=== PATIENT | female | born 1995 | race Caucasian/White ===

== ENCOUNTER 2018-11-07 14:21 | Emergency (ER) | payer MEDICARE, MEDICAID ==
[~2018-11-07] VITALS: Ht 165.1 cm; Wt 63.9 kg
[~2018-11-07 14:21] MED LIST: ALBU18HF2 INH; CLIN150C8 PO; LORA-269 PO; NO HOME MEDS; OXCA300T4 PO; QUET25TA PO
[2018-11-07 16:02] VITALS: BP 121/68
[2018-11-07 16:20] LABS: URINE AMPHETAMINE SCREEN NEGATIVE (Neg); URINE BARBITUATE SCREEN NEGATIVE (Neg); URINE BENZODIAZEPINES SCREEN NEGATIVE (Neg); URINE CANNABINOID SCREEN NEGATIVE (Neg); URINE COCAINE SCREEN NEGATIVE (Neg); URINE METHADONE SCREEN NEGATIVE (Neg); URINE OPIATE SCREEN NEGATIVE (Neg); URINE PHENCYCLIDINE SCREEN NEGATIVE (Neg)
[2018-11-07 16:30] LABS: ALANINE AMINOTRANSFERASE 327 U/L (12-78); ALBUMIN 4.2 G/DL (3.4-5.0); ALBUMIN/GLOBULIN RATIO 1.1 (1.1-1.5); ALKALINE PHOSPHATASE 81 IU/L (46-116); ANION GAP 11 (8-16); ASPARTATE AMINO TRANSFERASE 109 U/L (10-37); BASOPHILS % (AUTO) 0.8 % (0-1); BILIRUBIN,TOTAL 0.3 MG/DL (0.1-1.0); BLOOD UREA NITROGEN 10 MG/DL (7-18); BUN/CREATININE RATIO 11.6 (6.6-38.0); CALCIUM 9.1 MG/DL (8.5-10.1); CHLORIDE 108 MMOL/L (99-107); CREATININE 0.86 MG/DL (0.40-0.90); EOSINOPHILS # (AUTO) 0.2 X10'3 (0-0.9); EOSINOPHILS % (AUTO) 3.7 % (0-6); GLUCOSE 98 MG/DL (70-104); HEMATOCRIT 42.3 % (35.0-45.0); HEMOGLOBIN 14.5 g/dl (12.0-16.0); LYMPHOCYTES # (AUTO) 2.3 X10'3 (1.1-4.8); LYMPHOCYTES % (AUTO) 43.9 % (21-51); MEAN CORPUSCULAR HEMOGLOBIN 32.3 PG (27.0-31.0); MEAN CORPUSCULAR HGB CONC 34.2 g/dL (33.0-36.5); MEAN CORPUSCULAR VOLUME 94.5 FL (78-98); MEAN PLATELET VOLUME 8.3 FL (7.4-10.4); MONOCYTES # (AUTO) 0.5 X10'3 (0-0.9); MONOCYTES % (AUTO) 9.6 % (2-12); NEUTROPHILS # (AUTO) 2.2 X10'3 (1.8-7.7); PLATELET COUNT 227 X10'3 (140-440); POTASSIUM 3.9 MMOL/L (3.5-5.1); RED BLOOD COUNT 4.48 X10'6 (4.20-5.60); RED CELL DISTRIBUTION WIDTH 12.5 % (11.5-14.5); SODIUM 143 MMOL/L (135-145); TOTAL CARBON DIOXIDE 24.3 MMOL/L (24-32); TOTAL PROTEIN 8.2 G/DL (6.4-8.2); WHITE BLOOD COUNT 5.2 X10'3 (4.5-11.0); eGFR 82 ML/MIN
[2018-11-07 16:36] LABS: BETA HCG,QUANTITATIVE < 1.0 mIU/ml; C-REACTIVE PROTEIN 0.06 MG/DL (0.0-0.5)
== END 2018-11-07 17:22 | disposition home or self-care (01) ==
LOC: ER 14:23
DX: H54.62 Unqualified visual loss, left eye, normal vision right eye (principal); F12.90 Cannabis use, unspecified, uncomplicated; F15.90 Other stimulant use, unspecified, uncomplicated; F11.90 Opioid use, unspecified, uncomplicated; F31.9 Bipolar disorder, unspecified; Z59.0 Homelessness; Z79.2 Long term (current) use of antibiotics; Z79.899 Other long term (current) drug therapy; Z88.8 Allergy status to other drugs, medicaments and biological substances
CPT/HCPCS: 36415; 80053; 80305; 84702; 85025; 85651; 86140; 93005; 99284

== ENCOUNTER 2021-12-25 18:37 | Emergency (ER) | payer MEDICARE, MEDICAID ==
[~2021-12-25] VITALS: Ht 165.1 cm; Wt 47.7 kg
[~2021-12-25 18:37] MED LIST changes: +BUPR1TAB44 SL; +BUSP5TAB26 PO; -CLIN150C8 PO; +FLUT16SP NS; +LISD10CA PO; -LORA-269 PO; +LORA10TA65 PO; -NO HOME MEDS; -OXCA300T4 PO; +QUET100T34 PO; -QUET25TA PO
[2021-12-25] MEDS ORDERED: LIDOcaine 1% W/epiNEPHrine 1:100,000 20ml vial SQ ONE (20:40)
--- NOTE | 2021-12-25 20:50 | NUR ---
KIT AT BEDSIDE REQUESTED
[2021-12-25] MEDS ORDERED: LIDOcaine 1% w/EPI 1:100,000 30ml vial (MDV) SQ ONE (20:55)
[2021-12-25] MEDS ORDERED: LIDOcaine 1% w/EPI 1:100,000 30ml vial (MDV) IJ ONE (20:55)
[2021-12-25] MEDS ORDERED: SULF1TAB49 PO (22:26)
[2021-12-25] MEDS ORDERED: IBUP-1986 PO (22:26)
== END 2021-12-25 22:26 | disposition home or self-care (01) ==
LOC: ER 18:41
DX: L02.512 Cutaneous abscess of left hand (principal); Z88.8 Allergy status to other drugs, medicaments and biological substances; F31.9 Bipolar disorder, unspecified; F12.90 Cannabis use, unspecified, uncomplicated; F15.20 Other stimulant dependence, uncomplicated; Z59.00 Homelessness unspecified
CPT/HCPCS: 64450; 99284; A6449

== ENCOUNTER 2022-01-11 21:58 | Emergency (ER) | payer MEDICARE, MEDICAID ==
[~2022-01-11] VITALS: Ht 162.6 cm; Wt 54.5 kg
[~2022-01-11 21:58] MED LIST changes: +IBUP-1986 PO; +SULF1TAB49 PO
--- NOTE | 2022-01-11 22:07 | NUR ---
2200: pt Broght in by police for a med clearance, however she is very violent. She is obviously handcuffed, however, in order to get her out of the car several staff had to take the stretcher out to the ambulance bay where the nuclear spectroscopist car is to get her onto the gurney and place her in 4 point restraints.
[2022-01-11] MEDS ORDERED: diphenhydrAMINE 50 mg/ml inj IM ONE (22:10)
[2022-01-11] MEDS ORDERED: haloperidol lactate 5mg/ml inj IM ONE (22:10)
[2022-01-11] MEDS ORDERED: LORazepam 2 mg/ml vial IM ONE (22:10)
[2022-01-11 23:32] LABS: BASOPHILS % (AUTO) 0.3 % (0-1); EOSINOPHILS % (AUTO) 0.1 % (0-6); HEMATOCRIT 37.3 % (35.0-45.0); HEMOGLOBIN 12.5 g/dl (12.0-16.0); LYMPHOCYTES # (AUTO) 0.9 X10'3 (1.1-4.8); LYMPHOCYTES % (AUTO) 8.9 % (21-51); MEAN CORPUSCULAR HEMOGLOBIN 30.1 PG (27.0-31.0); MEAN CORPUSCULAR HGB CONC 33.6 g/dL (33.0-36.5); MEAN CORPUSCULAR VOLUME 89.5 FL (78-98); MEAN PLATELET VOLUME 7.3 FL (7.4-10.4); MONOCYTES # (AUTO) 0.4 X10'3 (0-0.9); MONOCYTES % (AUTO) 3.5 % (2-12); NEUTROPHILS # (AUTO) 9.2 X10'3 (1.8-7.7); NEUTROPHILS % (AUTO) 87.2 % (42-75); PLATELET COUNT 251 X10'3 (140-440); RED BLOOD COUNT 4.16 X10'6 (4.20-5.60); RED CELL DISTRIBUTION WIDTH 14.4 % (11.5-14.5); WHITE BLOOD COUNT 10.5 X10'3 (4.5-11.0)
[2022-01-11 23:42] LABS: ALANINE AMINOTRANSFERASE 41 U/L (12-78); ALBUMIN 3.5 G/DL (3.4-5.0); ALBUMIN/GLOBULIN RATIO 0.9 (1.1-1.5); ALKALINE PHOSPHATASE 86 IU/L (46-116); ANION GAP 13 (8-16); ASPARTATE AMINO TRANSFERASE 64 U/L (10-37); BILIRUBIN,TOTAL 0.5 MG/DL (0.1-1.0); BLOOD UREA NITROGEN 30 MG/DL (7-18); CALCIUM 9.3 MG/DL (8.5-10.1); CHLORIDE 103 MMOL/L (99-107); ETHANOL < 0.010 GM/DL (0.0-0.010); GLUCOSE 54 MG/DL (70-104); SODIUM 139 MMOL/L (135-145); TOTAL CARBON DIOXIDE 23.3 MMOL/L (24-32); TOTAL PROTEIN 7.3 G/DL (6.4-8.2); eGFR 54 ML/MIN
[2022-01-12 00:12] LABS: ACETAMINOPHEN < 2.0 UG/ML (10-30)
[2022-01-12 01:28] LABS: URINE HCG NEGATIVE (NEG)
--- NOTE | 2022-01-12 01:29 | NUR ---
pt. is unable to participate in med rec. unable to answer any questions at this time. pt. still has erratic behavior.
[2022-01-12 01:37] LABS: URINE AMPHETAMINE SCREEN POSITIVE (Neg); URINE BARBITUATE SCREEN NEGATIVE (Neg); URINE BENZODIAZEPINES SCREEN NEGATIVE (Neg); URINE CANNABINOID SCREEN NEGATIVE (Neg); URINE COCAINE SCREEN NEGATIVE (Neg); URINE METHADONE SCREEN NEGATIVE (Neg); URINE OPIATE SCREEN NEGATIVE (Neg); URINE PHENCYCLIDINE SCREEN NEGATIVE (Neg)
--- NOTE | 2022-01-12 06:41 | NUR ---
All 4 extremeties are now removed and no longer restrained
[2022-01-12 13:27] LABS: COLOR,URINE YELLOW (Yellow); GLUCOSE, URINE NEGATIVE (Neg); KETONES,URINE 15 mg/dl (Neg); LEUKOCYTE ESTERASE ,URINE NEGATIVE (Neg); NITRITES, URINE NEGATIVE (Neg); OCCULT BLOOD,URINE NEGATIVE (Neg); PH,URINE 5.5 (4.8-8.0); PROTEIN,URINE NEGATIVE (Neg); UROBILINOGEN,URINE 0.2 E.U/dL (0.2-1.0)
[2022-01-12 13:33] LABS: CLARITY,URINE SLIGHTLY CLOUDY (Clear); UA COLLECTION TYPE STRAIGHT CATH
[2022-01-12 13:52] LABS: CELLULAR CAST 0-4 /LPF (NEGATIVE); COARSE GRANULAR CAST 0-3 /LPF (NEGATIVE)
[2022-01-12 13:53] LABS: CAL OXALATE CRYSTALS 1+ /HPF (NEGATIVE)
[2022-01-12 13:54] LABS: BACTERIA,URINE FEW /HPF (Neg); MUCUS STRANDS MODERATE /LPF (Neg); RBC,URINE 0-2 /HPF (0-2); RENAL CELLS, URINE FEW /HPF; SQUAMOUS EPITHELIAL CELL,UR FEW /LPF (FEW); WBC,URINE 0-4 /HPF (0-4)
--- NOTE | 2022-01-12 19:00 | NUR ---
PT RESTING IN ROOM, APPEARS TO BE IN NO DISTRESS. PT IS STILL UNRESTRAINED. RR EQUAL AND UNLABORED. PT ON V.S MONITOR WITH STABLE V.S. PT APPEARS TO BE SLEEPING. WILL ALLOW THE PT TO CONTINUE TO REST AND GENERAL ASSESSMENT WILL BE DONE UPON PT AWAKING.
--- NOTE | 2022-01-13 04:45 | NUR ---
I agree with Berna Isbell Ns assessment.
[2022-01-13 05:56] VITALS: BP 145/97
== END 2022-01-13 07:07 ==
LOC: ER 21:59
DX: F15.10 Other stimulant abuse, uncomplicated (principal); Z20.822 Contact with and (suspected) exposure to COVID-19; F29 Unspecified psychosis not due to a substance or known physiological condition; F31.9 Bipolar disorder, unspecified; F12.90 Cannabis use, unspecified, uncomplicated; F14.10 Cocaine abuse, uncomplicated; Z88.8 Allergy status to other drugs, medicaments and biological substances; Z59.00 Homelessness unspecified
CPT/HCPCS: 36415; 80053; 80305; 80320; 80329; 81001; 81025; 85025; 87811; 96372; 99285; J1200; J1630; J2060

== ENCOUNTER 2023-12-23 08:44 | Emergency (ER) | payer MEDICARE, MEDICAID ==
[~2023-12-23] VITALS: Ht 160 cm; Wt 65.0 kg
[~2023-12-23 08:44] MED LIST changes: +HYDR-3686 PO; -SULF1TAB49 PO; +TERB125S TOP
[2023-12-23 10:58] VITALS: BP 134/73; PULSE 103; RESP 18; TEMP 98.1; O2SAT 95
== END 2023-12-23 11:01 | disposition home or self-care (01) ==
LOC: ER 08:45
DX: T40.2X1A Poisoning by other opioids, accidental (unintentional), initial encounter (principal); F12.90 Cannabis use, unspecified, uncomplicated; F15.90 Other stimulant use, unspecified, uncomplicated; Z88.6 Allergy status to analgesic agent; Z88.8 Allergy status to other drugs, medicaments and biological substances; Y92.89 Other specified places as the place of occurrence of the external cause
CPT/HCPCS: 99283

== ENCOUNTER 2024-06-23 14:36 | Inpatient (IN) | payer MEDICARE, MEDICAID ==
[~2024-06-23] VITALS: Ht 162.6 cm; Wt 71.7 kg
[2024-06-23] MEDS ORDERED: haloperidol lactate 5mg/ml inj IM ONE (14:40)
[2024-06-23] MEDS: haloperidol lactate 5mg/ml inj ONE (14:54)
[2024-06-23 15:32] LABS: MEAN PLATELET VOLUME 7.2 FL (7.4-10.4); RED CELL DISTRIBUTION WIDTH 13.2 % (11.5-14.5)
[2024-06-23 15:56] LABS: CREATININE 0.84 MG/DL (0.40-0.90); ETHANOL < 10 MG/DL (<10); TOTAL CARBON DIOXIDE 26.3 MMOL/L (24-32); eGFR 80 ML/MIN
--- NOTE | 2024-06-23 17:01 | Physician Documentation ---
History of Present Illness ~ Chief Complaint: 5150 Stated Complaint: 5150 Time Seen by MD: 14:40 Primary Medical Doctor: COURTNEY Mode of Arrival: Police HPI This is a 29-year-old female with a known history of psychiatric disease brought in on 5150 legal hold for gravely disabled with the acute psychiatric decompensation. This is a complaint no somatic complaints. Earlier today the patient is acting paranoid. History, review of systems, physical examination somewhat limited due to patient's acute psychiatric disease Medication Reconciliation Allergies: Coded Allergies: asenapine (Verified Allergy, Intermediate, LEG TWITCHING, 12/23/23) paliperidone (Verified Allergy, Intermediate, ALTERED LOC, 12/23/23) Scheduled Albuterol Sulfate (Ventolin Hfa), 2 PUFFS INH Q4HPRN Buprenorphine HCl/Naloxone HCl (Buprenorphn-Naloxn 2-0.5 mg Tb), 1 TAB SL DAILY Buspirone Hcl (Buspirone Hcl), 5 MG PO TID Fluticasone Propionate (Fluticasone Propionate), 2 SPR NS DAILY Hydroxyzine Hcl (Atarax), 1-2 TAB PO Q8H Ibuprofen (Ibuprofen), 1 TAB PO Q8H Lisdexamfetamine Dimesylate (Vyvanse), 10 MG PO QAM Loratadine (Claritin), 10 MG PO HS Quetiapine Fumarate (Quetiapine Fumarate), 200 MG PO HS Terbinafine HCl (Lamisil), 2 SPRAYS TOP BID Past Medical History 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 Physical Exam Vital Signs: Temperature: 98.1, Source: Axillary, Heart Rate: 87, Respiratory Rate: 16, BP: 99/57, Pulse Oximetry: 99 Oxygen Flow Rate: 0 Physical Exam Physical examination: GENERAL: Awake, no apparent distress, non-toxic appearing, answers questions in a very limited fashion, does not follows commands appropriately. HEENT: Atraumatic, normocephalic, pupils equal, extraocular muscles intact Active gross movements, sclerae anicteric, mucus membranes moist, no stridor. NECK: Midline, no JVD CARDIOVASCULAR: Good skin perfusion without evidence of pallor, mottling. PULMONARY: Nonlabored, symmetric chest rise, no audible wheezing, no accessory muscle use, no respiratory distress, speaking in full sentences. GASTROINTESTINAL: Not distended. NEUROLOGIC: Lucid with altered/psychotic mental status. Normal facial symmetry. Moves all extremities symmetrically and with purpose. No truncal ataxia. Speech is fluid without evidence of dysarthria or aphasia, no focal deficits appreciated. EXTREMITIES: Acute deformities Skin: warm, dry PSYCHIATRIC: Floridly psychotic, respond to internal stimuli, paranoid, poor insight, poor concentration] Progress Results/Orders Results/Orders Orders - CESAR VALLADARES DO Urinalysis (06/23/24 14:41) Hcg, Ur Ql (06/23/24 14:41) Drug Screen, Urine (06/23/24 14:41) Med Rec (06/23/24 14:41) 1799.11 (06/23/24 14:41) Close Observation Level (06/23/24 14:41) Covid19 Binax Poc Result Entry (06/23/24 14:41) Substance Use Navigator (06/23/24 14:41) Regular Diet (06/23/24 Dinner) Behavioral Restraints (06/23/24 14:40) Completed Orders - CESAR VALLADARES DO Lorazepam Inj (Ativan Inj) (06/23/24 14:40) Diphenhydramine Inj (Benadryl Inj.) (06/23/24 14:40) Cbc/Diff (06/23/24 14:41) Ethanol (06/23/24 14:41) Acetaminophen (06/23/24 14:41) Salicylate (06/23/24 14:41) TSH (06/23/24 14:41) BMP (06/23/24 14:41) Haloperidol Lact. (Haldol) (06/23/24 14:44) Medications Received in ER Medications (Trade) Dose Ordered Sig/Jazmín Route PRN Reason Start Time Stop Time Status Last Admin Dose Admin (Ativan inj) 2 mg ONCE ONCE IM 06/23/24 14:40 06/23/24 14:41 DC 06/23/24 14:53 2 MG (Benadryl inj.) 50 mg ONCE ONCE IM 06/23/24 14:40 06/23/24 14:41 DC 06/23/24 14:54 50 MG (Haldol) 5 mg STK-MED ONCE .ROUTE 06/23/24 14:44 06/23/24 14:44 DC 06/23/24 14:54 5 MG Vital Signs 06/23/24 06/23/24 06/23/24 06/23/24 14:40 14:40 14:55 14:55 Resp 22 O2 Flow Rate 0 0 06/23/24 06/23/24 06/23/24 06/23/24 15:00 15:05 15:10 15:15 Temp 98.0 98.0 Pulse 89 98 Resp 16 20 16 B/P (MAP) 118/70 (86) 117/56 (76) Pulse Ox 99 100 O2 Flow Rate 0 0 06/23/24 06/23/24 06/23/24 06/23/24 15:25 15:30 16:00 16:15 Temp 98.2 98.2 98.2 Pulse 99 101 98 88 Resp 16 16 16 16 B/P (MAP) 117/56 (76) 104/54 (71) 99/50 (66) 102/52 (69) Pulse Ox 100 98 99 99 O2 Flow Rate 0 0 0 06/23/24 06/23/24 16:30 16:45 Temp 98.1 98.1 Pulse 84 87 Resp 16 16 B/P (MAP) 99/52 (68) 99/57 (71) Pulse Ox 99 99 O2 Flow Rate 0 0 Laboratory Tests Test 06/23/24 15:26 White Blood Count 5.5 Red Blood Count 3.99 L Hemoglobin 12.3 Hematocrit 36.4 Mean Corpuscular Volume 91.2 Mean Corpuscular Hemoglobin 30.7 Mean Corpuscular Hemoglobin Concent 33.7 Red Cell Distribution Width 13.2 Platelet Count 288 Mean Platelet Volume 7.2 L Neutrophils (%) (Auto) 68.1 Lymphocytes (%) (Auto) 22.1 Monocytes (%) (Auto) 9.2 Eosinophils (%) (Auto) 0.4 Basophils (%) (Auto) 0.2 Neutrophils # (Auto) 3.8 Lymphocytes # (Auto) 1.2 Monocytes # (Auto) 0.5 Eosinophils # (Auto) 0.0 Basophils # (Auto) 0.0 CBC Comment Sodium Level 139 Potassium Level 3.2 L Chloride Level 104 Carbon Dioxide Level 26.3 Anion Gap 9 Blood Urea Nitrogen 21 H Creatinine 0.84 Estimated GFR/1.73 m2 80 BUN/Creatinine Ratio 25.0 H Glucose Level 155 H Calcium Level 8.2 L Albumin 3.3 L Thyroid Stimulating Hormone (TSH) 0.62 Chemistry Comments Salicylates Level 0.4 L Acetaminophen Level < 2.0 L Ethyl Alcohol Level < 10 Medical Decision Making Findings Facility Status: ED Holds, E process The plan was discussed with the patient, who demonstrates clear understanding of the plan and is in agreement with the plan unless otherwise noted in the chart. All questions have been answered, all concerns were addressed unless otherwise documented. I was available throughout their ED stay for frequent reassessment and questions. Differential Diagnoses (considered and possible or likely): [Acute psychiatric decompensation, methamphetamine intoxication, gravely disabled, medication noncompliance] ??Differential Diagnoses (considered and unlikely, not requiring evaluation currently): [No evidence of somatic complaints] MDM Data Please see [facility] for the following: Independent Historians and external Records Review. Historian: [Patient] Independent Historians: ?[probation officer, mental health worker] Medication Management: [Reviewed medication list] Social History and determinants: [Reviewed] Please see the body of the note for the following: Any independent interpretations of ECG, imaging studies. All vitals signs/haemodynamics, ordered tests were independently reviewed and interpreted by myself. Nursing triage complaint and vitals reviewed, additional nursing notes were reviewed as available and I agree unless otherwise noted or documented in contra diction in the chart Vital Signs: Independently reviewed Labs: Independently interpreted Imaging: Independently interpreted Old Medical Records: Independently reviewed, see [facility] for relevant summary and information Pulse Oximetry: [100%] interpreted as [normal on room air] by me [Dairy Manager: [Regular Rate, Regular rhythm, no ectopy, NSR] reviewed and interpreted by me] Additionally notably showing: [Hemodynamically stable. Unremarkable laboratory workup.] Tests considered but not ordered include: [Imaging has been considerably it isn't necessary] Social Determinants of Health Impact: Patient was evaluated in [facility], [facility] [place] access to healthcare due to below par ratio of patient to medical providers. [] Comorbid Conditions Impacting Present Evaluation and Care/Treatment: [Polysubstance use, untreated psychiatric disease] Management Discussions with other Healthcare Providers: [Mental health] Treatment and Disposition Medication Management (Given or considered): [Patient required chemical sedation and restraints, physical restraints temporarily homeless]. See EMR for details Consideration for Hospitalization/Escalation/Deescalation of Care: Admission for observation has been considered, [however the patient is able to tolerate p.o., their symptoms are controlled, they are able to rely on oral medications, and their chief complaint/diagnosis can be managed on outpatient basis.] ?ED Course:?[Medically cleared for psychiatric evaluation] ?Shared decision making:?[] Code status:?FULL Please see the full Electronic Medical Record for full details of nursing documentation, medications list, other records of complete past medical history and conditions, vital signs, laboratory studies, and any radiologic study interpretations by radiologists. Portions of this note were completed using Spondo dictation software and as a result there may exist minor errors in spelling. I have reviewed elements of past family and social history and agree as included in note. Departure Disposition: 30 STILL A PATIENT Impression: Primary Impression: Acute psychosis Condition: Stable Referrals: NO PRIMARY CARE PROVIDER (PCP) Critical Care Note Critical Care Note CRITICAL CARE TIME: [40 ] minutes Treatments/Evaluations: Close monitoring and treatment of unstable vital signs, cardiorespiratory, and neurologic status, while maintaining tight balance of fluid, respiratory, and cardiac interventions. This time includes discussing the case with the patient and the patients family. This time does not include all procedures stated elsewhere in this record. This time also includes reviewing old records, labs and radiological studies. This time includes examining and re- examining the patient. Additionally, this time also includes arranging care with admitting and consulting physicians. Signature Scribe Signature: No scribe Attestation: This note accurately reflects clinical decisions, work performed by myself, Cesar Valladares, CESAR BAIRD DO June 23, 2024 17:01
[2024-06-24 09:49] LABS: LEUKOCYTE ESTERASE ,URINE SMALL (Neg); NITRITES, URINE POSITIVE (Neg); OCCULT BLOOD,URINE NEGATIVE (Neg)
[2024-06-24 09:53] LABS: URINE HCG NEGATIVE (NEG)
[2024-06-24 10:20] LABS: UA COLLECTION TYPE CLN CATCH MIDSTREAM
[2024-06-24 10:24] LABS: SQUAMOUS EPITHELIAL CELL,UR FEW /LPF (FEW)
[2024-06-24 10:51] LABS: URINE AMPHETAMINE SCREEN POSITIVE (Neg); URINE BARBITUATE SCREEN NEGATIVE (Neg); URINE BENZODIAZEPINES SCREEN NEGATIVE (Neg); URINE CANNABINOID SCREEN POSITIVE (Neg); URINE COCAINE SCREEN NEGATIVE (Neg); URINE METHADONE SCREEN NEGATIVE (Neg); URINE OPIATE SCREEN NEGATIVE (Neg); URINE PHENCYCLIDINE SCREEN NEGATIVE (Neg)
[2024-06-24] MEDS: amox tr/potassium clavulanate 875/125mg TAB PO SCH (11:09)
[2024-06-24] MEDS ORDERED: LISD10CA PO (16:14)
[2024-06-24] MEDS ORDERED: QUET-1 PO (16:14)
[2024-06-24] MEDS ORDERED: BUPR1FIL3 SL (16:14)
[2024-06-24] MEDS ORDERED: FLUT16SP11 BOTHNARES (16:14)
[2024-06-24] MEDS ORDERED: ALBU18HF2 INH (16:14)
[2024-06-24] MEDS ORDERED: BUPR100T13 PO (16:14)
[2024-06-24] MEDS ORDERED: LORA10TA7 PO (16:14)
[2024-06-24] MEDS: OLANZapine 5mg rapidly disint. tablet PO ONE (18:05)
[2024-06-25] MEDS: OLANZapine **IM** 10 mg inj. IM PRN (09:50)
[2024-06-25] MEDS ORDERED: loperamide 2mg capsule PO PRN ×2 (12:00→12:15)
[2024-06-25] MEDS ORDERED: mag hydrox/Alum hydrox/simeth 30ml oral suspension PO PRN (12:00)
[2024-06-25] MEDS ORDERED: magnesium hydroxide 30ml (MOM) UD suspension PO PRN (12:00)
[2024-06-25 13:37] VITALS: BP 130/75; PULSE 81; RESP 16; TEMP 97.3; O2SAT 98
[2024-06-25 16:14] VITALS: RESP 16; O2SAT 98
[2024-06-25] MEDS: potassium Cl 20 mEq SR tablet PO STA (17:29)
[2024-06-25 19:00] VITALS: RESP 16; O2SAT 99
[2024-06-25 19:56] VITALS: BP 117/56; PULSE 81; RESP 16; TEMP 97.7; O2SAT 99
[2024-06-25] MEDS: buPROPion 100mg tablet PO SCH (20:00)
[2024-06-26 07:30] VITALS: RESP 16
--- NOTE | 2024-06-26 08:24 | HISTORY AND PHYSICAL ---
History & Physical Providers to CC ~ History of Present Illness Reason for Admit\Complaint: si History of Present Illness Patient is a 29-year-old female with a chief complaint of suicidal ideation. Patient has pressured speech and unable to give any significant history can not tell me a plan keeps rambling on. Allergies: Coded Allergies: asenapine (Verified Allergy, Intermediate, LEG TWITCHING, 06/23/24) paliperidone (Verified Allergy, Intermediate, ALTERED LOC, 06/23/24) Home Medications Home Medications Active Reported Ventolin Hfa (Albuterol Sulfate) 90 Mcg Hfa.aer.ad 2 Puffs INH Q4HPRN PRN 30 Days Suboxone 8 Mg-2 Mg Sl Film (Buprenorphine Hcl/Naloxone Hcl) 8 Mg-2 Mg Film 1 Strip SL DAILY 30 Days Fluticasone Propionate 16 Gm [place].susp 2 Sprays BOTHNARES DAILY Wellbutrin (Bupropion Hcl) 100 Mg Tablet 1 Tab PO Q12H 30 Days Vyvanse (Lisdexamfetamine Dimesylate) 10 Mg Capsule 1 Cap PO QAM 30 Days Loratadine 10 Mg Tablet 10 Mg PO DAILY Seroquel* (Quetiapine Fumarate) 100 Mg Tablet 5 Tab PO HS Past Medical History Past Medical History Past medical history unable to be obtained Surgical history unable to be obtained Social history the patient states she dislike bad stuff in her lungs but admits to smoking and vaping, admits to drinking alcohol 1-2 x per week ,tried every drug available to man kind single family hist.-pt shrugs her shoulder Exam Vitals: Vital Signs Date Time Temp Pulse Resp B/P (MAP) Pulse Ox O2 Delivery O2 Flow Rate FiO2 06/25/24 19:56 97.7 81 16 117/56 (76) 99 Room Air 06/25/24 13:37 0.0 General: General: Well alert, well oriented, well cooperated during the physical. pressured speech- not making sense HEENT: Conjunctive are pink, sclerae clear, no icterus, pupil is equal in both sides, reactive to light, no ear discharge, no pharyngeal erythema or an edema. Neck: Supple, no JVD, no lymphadenopathy and thyromegaly. Chest: Decreased air entry in the right base of the lung. Cardiovascular: S1-S2 regular rate and rhythm, no gallops, no rubs, no murmurs Abdomen: No visible peristalsis, Bowel sounds present on auscultation, soft, nontender, no guarding, no rigidity Extremities: No obvious deformities, no c/c/e Central Nervous System: No focal neurological deficits, no motor or sensory weakness in all 4 extremities, could move all 4 extremities, 2+ deep tendon reflexes Musculoskeletal: No joint swelling, deformities, inflammations, and no scoliosis and back tenderness Skin: Warm and dry. Diagnostic Data Last Recorded Lab Results: 06/23/24 1526 06/23/24 1526 Additional Plan A/P -SI PER PSYCHIATRY -ACUTE PSYCHOSIS PER PSYCHIATRY -HYPOKALEMIA REPLACE POTASSIUM PER PROTOCOL MONITOR ELECTROLYTES CHECK ROUTINE LABS MEDICINE TEAM WILL CONTINUE TO FOLLOW PER PROTOCOL Date of Service: June 26, 2024 Billing Provider: LINDA GRUBER MD Common Visit Codes: [id number] INP/OBS CARE (LOW) LINDA GRUBER MD June 26, 2024 08:24
[2024-06-26] MEDS: fluticasone nasal spray 16GM bottle NS SCH (08:49)
[2024-06-26] MEDS: lisdexamfetamine dimesylate 10mg capsule PO SCH (08:49)
[2024-06-26] MEDS: buprenorphine/naloxone 8MG-2MG SUBlingual film SL SCH (08:51)
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
[2024-06-26] MEDS: OLANZapine **IM** 10 mg inj. IM ONE (11:30)
[2024-06-26 17:54] VITALS: PULSE 66; RESP 12; O2SAT 100
[2024-06-26] MEDS: albuterol 2.5 MG/3 ML nebule NEB PRN (17:54)
[2024-06-26 18:00] VITALS: PULSE 70; RESP 12
[2024-06-26 19:00] VITALS: RESP 18
[2024-06-26 20:00] VITALS: PULSE 68; RESP 16
[2024-06-27 07:00] VITALS: RESP 16
[2024-06-27 08:00] VITALS: BP 107/74; PULSE 92; RESP 14; TEMP 97.4; O2SAT 99
[2024-06-27] MEDS ORDERED: lisdexamfetamine dimesylate 10mg capsule PO SCH (08:00)
[2024-06-27 19:00] VITALS: RESP 17; O2SAT 99
[2024-06-27 20:00] VITALS: BP 134/78; PULSE 107; RESP 17; TEMP 99.4; O2SAT 99
[2024-06-27] MEDS: mag hydrox/Alum hydrox/simeth 30ml oral suspension PO PRN (22:13)
[2024-06-28 07:09] VITALS: RESP 16
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
[2024-06-28 08:37] VITALS: BP 127/74; PULSE 88; RESP 16; TEMP 98.1; O2SAT 100
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
[2024-06-28 10:21] LABS: MEAN PLATELET VOLUME 7.3 FL (7.4-10.4); RED CELL DISTRIBUTION WIDTH 13.2 % (11.5-14.5)
[2024-06-28 10:52] LABS: CHOL/HDL RATIO 2.5 (0.00-4.99); CREATININE 0.80 MG/DL (0.40-0.90); LDL CHOLESTEROL 77 MG/DL (50-100); TOTAL CARBON DIOXIDE 31.0 MMOL/L (24-32); eCRCL 90 ML/MIN; eGFR 85 ML/MIN
[2024-06-28 19:00] VITALS: BP 144/85; PULSE 90; RESP 16; TEMP 96.7; O2SAT 98
[2024-06-28 19:59] VITALS: RESP 16; O2SAT 98
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
[2024-06-28 22:11] LABS: URINE HCG NEGATIVE (NEG)
[2024-06-29 07:00] VITALS: RESP 16; O2SAT 100
[2024-06-29 08:18] VITALS: PULSE 98; RESP 16; O2SAT 99
[2024-06-29 08:25] VITALS: BP 122/73; PULSE 111; RESP 16; TEMP 97.8; O2SAT 100
[2024-06-29 08:26] VITALS: PULSE 96; RESP 16
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
[2024-06-29 19:18] VITALS: BP 126/71; PULSE 97; RESP 16; TEMP 98; O2SAT 96
[2024-06-30] MEDS: magnesium hydroxide 30ml (MOM) UD suspension PO PRN (02:43)
[2024-06-30] MEDS: lisdexamfetamine dimesylate 10mg capsule PO SCH (07:08)
[2024-06-30 08:00] VITALS: RESP 16
[2024-06-30 10:48] LABS: LEUKOCYTE ESTERASE ,URINE NEGATIVE (Neg); NITRITES, URINE NEGATIVE (Neg); OCCULT BLOOD,URINE NEGATIVE (Neg)
[2024-06-30 10:49] LABS: UA COLLECTION TYPE CLN CATCH MIDSTREAM
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
[2024-06-30 16:36] VITALS: PULSE 85; RESP 18; O2SAT 99
[2024-06-30 16:42] VITALS: PULSE 93; RESP 14
[2024-06-30 20:00] VITALS: BP 136/94; PULSE 93; RESP 18; TEMP 97.8; O2SAT 100
--- NOTE | 2024-06-30 20:13 | PROGRESS NOTE ---
Daily Progress Note Providers to CC ~ Antibiotic Timeout Antibiotic Ordered?: No Subjective This is the hospitalist progress note on patients hospitalized at [facility]. The patient hands me a list of concerns that she has in regards to one of the concerns is plantar fasciitis she says she has rocks coming out her feet and I looked up the plantar surface of her feet her skin is intact and there was no lack of integrity, the patient has a small hard nodule on the dorsum of her right middle finger that she is requesting this to be excised and I informed her we can not do this in the hospital. She wanted to restart her hepatitis treatment when I asked her if she had completed a hepatitis treatment she informed me she had completed the hepatitis treatment and I informed her that we usually do not do a 2nd treatment. The patient is also asking for STI testing and states that she knows she has syphilis however she had can not quantify why she has syphilis. The patient does have a UTI however the urine was not sent off for culture or sensitivity and the patient has been on a one-week course of Augmentin. Recent a urinalysis with culture and sensitivity if indicated and I ordered a urine for GC and chlamydia as well as an RPR Objective Vital Signs Date Time Temp Pulse Resp B/P (MAP) Pulse Ox O2 Delivery O2 Flow Rate FiO2 06/30/24 19:26 Room Air 06/30/24 16:42 93 14 0.0 06/30/24 16:36 99 21 06/29/24 19:18 98.0 126/71 (89) Result Diagram: 06/28/24 1002 06/28/24 1002 Gen. No acute distress alert and oriented, very hyperactive in both activity and in pressured speech Lungs clear to ascultation bilaterally, no wheezes rales or rhonchi appreciated Heart normal sinus rhythm no murmurs rubs or clicks noted Abdomen soft nontender bowel sounds are normoactive Lower extremities no clubbing cyanosis, nor edema appreciated bilaterally Problem\Assessment\Plan 1. Acute psychosis , polysubstance abuse, Suicidal ideation- management per Psychiatry team 2. Hypokalemia resolved 3. Patient wants to get testing done which is ordered and is negative 4. Patient can use Dylon-Cobos ointment for lower back 3 times daily for 10 days 5. UTI- Initial urinalysis was not sent for culture and sensitivity- finished a one-week course of Augmentin Urinalysis today is negative # requesting STD testing- RPR Urine for GC and chlamydia # requesting hepatitis-C treatment- The patient informs me she has completed a course of treatment. This was a very exhausting visit as the patient at times his intrusive and has over a dozen request The hospitalist service will continue to follow the patient Date of Service: June 30, 2024 Billing Provider: LEIGH DIEZ DO Common Visit Codes: [id number] INP/OBS CARE(MOD) LEIGH DIEZ DO June 30, 2024 20:13
[2024-07-01 07:00] VITALS: BP 113/98; PULSE 86; RESP 14; TEMP 98.2; O2SAT 99
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
[2024-07-01] MEDS: divalproex sod 125mg sprinkle cap PO SCH (17:42)
[2024-07-01 19:41] VITALS: BP 116/69; PULSE 98; RESP 16; TEMP 97.7; O2SAT 98
[2024-07-02 07:00] VITALS: BP 110/63; PULSE 17; RESP 17; TEMP 98.4; O2SAT 99
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
--- NOTE | 2024-07-02 18:52 | PROGRESS NOTE ---
Daily Progress Note Providers to CC ~ Antibiotic Timeout Antibiotic Ordered?: No Subjective The patient was seen in mental health unit in presence of nursing staff. Patient was walking very comfortably knee in corridor multiple times but then she told me her left knees hurting and she has a broken left foot toes . She wants to get the x-ray done for her toes and left knee. I examined left knee there is no signs of knee swelling or erythema. This patient always keep complaining about multiple different issues Objective Vital Signs Date Time Temp Pulse Resp B/P (MAP) Pulse Ox O2 Delivery O2 Flow Rate FiO2 07/02/24 08:00 Room Air 07/02/24 07:00 98.4 17 17 110/63 (79) 99 07/01/24 07:00 0.0 21 Result Diagram: 06/28/24 1002 06/28/24 1002 General-patient not in any acute distress, alert awake , chronically ill appearing HEENT-atraumatic normocephalic, neck supple without elevated JVD. No lymphadenopathy bilaterally. Eyes-no icterus or pallor seen in eyes Chest-clear to auscultation bilaterally, breathing nonlabored no tachypnea, no wheezing, no crepitation, no crackles. Heart-S1-S2 normal, regular heart rate no murmur Abdomen bowel sounds positive on auscultation, soft nondistended nontender no guarding, no rigidity Skin no active skin rash Neurology-grossly intact, nonfocal awake cooperated during physical exam Extremity- no pedal edema able to move all 4 extremities, ambulate. I examined left knee there is no signs of knee swelling or erythema. Problem\Assessment\Plan 1. Acute psychosis , polysubstance abuse, Suicidal ideation- management per Psychiatry team 2. Hypokalemia resolved 3. Patient wants to get testing done which is ordered and is negative 4. Patient can use Dylon-Cobos ointment for lower back 3 times daily for 10 days 5. UTI- Initial urinalysis was not sent for culture and sensitivity- finished a one-week course of Augmentin Urinalysis today is negative # requesting STD testing- RPR Urine for GC and chlamydia # requesting hepatitis-C treatment- The patient informs me she has completed a course of treatment. # ordered x-ray of left foot as patient mentioned that all her toes are broken The hospitalist service will continue to follow the patient Date of Service: July 02, 2024 Billing Provider: SABINA MCCLELLAND MD Common Visit Codes: [id number] INP/OBS CARE(LOW) SABINA MCCLELLAND MD July 02, 2024 18:52
[2024-07-02 19:00] VITALS: RESP 21; O2SAT 98
[2024-07-02 20:00] VITALS: BP 128/78; PULSE 96; RESP 21; TEMP 97.1; O2SAT 98
--- NOTE | 2024-07-02 20:36 | RADIOLOGY REPORT ---
CLINICAL INDICATION: left foot pain and h/o toe fracture TECHNIQUE: DI FOOT, COMPLETE (3VW MIN) Comparison: None FINDINGS: No osseous or joint abnormality with no fracture or dislocation. Joint spaces are normal. IMPRESSION: No abnormality demonstrated.
[2024-07-03 08:00] VITALS: BP 111/59; PULSE 74; RESP 16; TEMP 97; O2SAT 98
[2024-07-03 09:38] VITALS: PULSE 83; RESP 16; O2SAT 98
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
[2024-07-03 19:00] VITALS: RESP 20; O2SAT 98
[2024-07-03 20:45] VITALS: BP 119/71; PULSE 90; TEMP 98.6; O2SAT 98
[2024-07-03 21:22] VITALS: PULSE 95; RESP 16; O2SAT 99
[2024-07-04 07:50] VITALS: BP 102/63; PULSE 83; RESP 16; TEMP 98; O2SAT 100
--- NOTE | 2024-07-04 18:18 | PROGRESS NOTE- Residence ---
Progress Note - Resident Providers to CC Resident Creating Document: KENDRICK BHATTI RES ~ Antibiotic Timeout Antibiotic Ordered?: No Subjective Patient was seen at the bedside with sitter. She was complaining only about the halo and quetiapine dosage was too much for her, which was recommended to consult with psychiatric team. Objective Vital Signs Date Time Temp Pulse Resp B/P (MAP) Pulse Ox O2 Delivery O2 Flow Rate FiO2 07/04/24 07:50 98.0 83 16 102/63 (76) 100 Room Air 0.0 21 Vitals were stable at the moment. On exam: General: Well alert, well oriented, not confused, not agitated, not in acute distress, well cooperated during the physical. HEENT: Conjunctive are pink, sclerae clear, no icterus, pupil is equal in both sides, reactive to light, no ear discharge, no pharyngeal erythema or an edema, mouth and lips are moist. Neck: Supple, no JVD, no lymphadenopathy and thyromegaly. Lungs:Equal air entry on both lungs, no additional sounds Heart: S1-S2 regular sinus rhythm and, regular rate, no gallops, no rubs, no murmurs Abdomen: No visible peristalsis, Bowel sounds present on auscultation, soft, nontender, no guarding, no rigidity Extremities: No obvious deformities, no pitting edema bilaterally, capillary refill intact, able to wiggle toes both sides, peripheral pulsations are intact on both sides CLAIMS VICE PRESIDENT: No focal neurological deficits, no motor and sensory weakness in all 4 extremities, could move all 4 extremities Musculoskeletal: No joint swelling, deformities, inflammations, and no scoliosis and back tenderness Skin: No active skin lesions and rashes Assessment Assessment Patient is a 29-year-old female with a chief complaint of suicidal ideation. Patient has pressured speech and unable to give any significant history can not tell me a plan keeps rambling on. Plan Plan # Acute psychosis # polysubstance abuse # Suicidal ideation -management per Psychiatry team # Hypokalemia resolved # lower back pain -Patient can use Dylon-Cobos ointment for 3 times daily for 10 days # UTI- Initial urinalysis was not sent for culture and sensitivity- finished a one-week course of Augmentin Urinalysis today is negative # STD testing- on request RPR Urine for GC and chlamydia # hepatitis-C treatment- on request The patient informs me she has completed a course of treatment. # ordered x-ray of left foot as patient mentioned that all her toes are broken No abnormality demonstrated. Disposition: Hospitalist team will follow the patient, appreciate for letting us involved in the patient's care, we are welcome for discussing questions for patient's care during hospitalization. Resident MD attestation: Patient was seen, examined and discussed with attending MD, Dr. Manfred BHATTI MD Internal Medicine Resident, PGY2 PSYCHIATRIC Date of Service: July 04, 2024 Billing Provider: ZE DIEHL MD Common Visit Codes: [id number] INP/OBS CARE(MOD) KENDRICK BHATTI, RES July 04, 2024 18:17 ZE DIEHL MD July 04, 2024 20:31
[2024-07-04 19:00] VITALS: RESP 16; O2SAT 99
[2024-07-04 19:43] VITALS: PULSE 91; RESP 16; O2SAT 100
[2024-07-04 20:00] VITALS: BP 117/58; PULSE 16; RESP 20; TEMP 97.9; O2SAT 99
[2024-07-05 07:30] VITALS: BP 123/67; PULSE 90; RESP 16; TEMP 97.1; O2SAT 99
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
[2024-07-05 19:00] VITALS: RESP 16; O2SAT 99
[2024-07-05 20:00] VITALS: BP 119/76; PULSE 100; RESP 16; TEMP 98.2; O2SAT 99
[2024-07-05 20:42] VITALS: PULSE 91; RESP 16; O2SAT 98
[2024-07-06 07:00] VITALS: RESP 16
[2024-07-06 08:00] VITALS: RESP 16
--- NOTE | 2024-07-06 15:31 | PROGRESS NOTE ---
Daily Progress Note Providers to CC ~ Antibiotic Timeout Antibiotic Ordered?: No Objective Vital Signs Date Time Temp Pulse Resp B/P (MAP) Pulse Ox O2 Delivery O2 Flow Rate FiO2 07/06/24 08:00 16 Room Air 07/05/24 20:42 91 98 0 21 07/05/24 20:00 98.2 119/76 (90) Awake cooperative agitated hyperactive, in no acute distress HEENT normocephalic atraumatic extraocular movements noted Neck supple, no JVD Chest: Clear to auscultation, no wheezes crackles rhonchi Heart regular rate rhythm, no murmur or gallop rub Abdomen is soft nontender no organomegaly Extremities no cyanosis clubbing or edema Neuro exam is nonfocal Other Results Medications reviewed Problem\Assessment\Plan 1. Acute psychosis , polysubstance abuse, Suicidal ideation- continue treat per psych 2. Hypokalemia resolved 3. . UTI-resolved. Patient has completed one week course of Augmentin.She is asymptomatic I will sign off. Please contact the hospitalist team for any change in patient's medical condition. Hospitalist team will continue follow the patient . Date of Service: Jul 06, 2024 Billing Provider: LUKE PARSON MD Common Visit Codes: [id number] INP/OBS CARE(LOW) LUKE PARSON MD Jul 06, 2024 15:31
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
[2024-07-06 19:00] VITALS: RESP 16; O2SAT 100
[2024-07-06 20:00] VITALS: BP 131/74; PULSE 97; RESP 16; TEMP 96.4; O2SAT 100
[2024-07-06 20:21] VITALS: PULSE 103; RESP 16; O2SAT 97
[2024-07-07 07:00] VITALS: RESP 16; O2SAT 99
[2024-07-07] MEDS: lisdexamfetamine dimesylate 10mg capsule PO SCH (07:11)
[2024-07-07 08:00] VITALS: BP 104/66; PULSE 93; RESP 16; TEMP 97.4; O2SAT 99
[2024-07-07 08:50] VITALS: PULSE 103; RESP 18; O2SAT 97
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
[2024-07-07 19:00] VITALS: RESP 20; O2SAT 98
[2024-07-07 20:00] VITALS: BP 123/70; PULSE 108; RESP 20; TEMP 97.6; O2SAT 98
[2024-07-08 07:00] VITALS: RESP 18; O2SAT 99
[2024-07-08 08:00] VITALS: BP 116/81; PULSE 96; RESP 18; TEMP 97.9; O2SAT 99
[2024-07-08] MEDS: haloperidol lactate 5mg/ml inj ONE (09:36)
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
--- NOTE | 2024-07-08 18:19 | PROGRESS NOTE ---
Daily Progress Note Providers to CC ~ Antibiotic Timeout Antibiotic Ordered?: No Subjective This is the hospitalist progress note on patients hospitalized at [facility]. The patient has been agitated requiring sedation earlier today with lorazepam and Benadryl and IM Haldol and the patient is now sleeping. Objective Vital Signs Date Time Temp Pulse Resp B/P (MAP) Pulse Ox O2 Delivery O2 Flow Rate FiO2 07/08/24 08:00 97.9 96 18 116/81 (93) 99 Room Air 07/07/24 08:50 0 21 Gen. Asleep Lungs no respiratory distress appreciated Neuro no abnormal movements or tremors appreciated Problem\Assessment\Plan 1. Acute psychosis , polysubstance abuse, Suicidal ideation- management per Psychiatry team 2. Hypokalemia resolved 3. Patient wants to get testing done which is ordered and is negative 4. Patient can use Dylon-Cobos ointment for lower back 3 times daily for 10 days 5. UTI- Initial urinalysis was not sent for culture and sensitivity- finished a one-week course of Augmentin Urinalysis today is negative # requesting STD testing- RPR Urine for GC and chlamydia # requesting hepatitis-C treatment- The patient informs me she has completed a course of treatment. # patient mentioned that all her toes are broken X-ray was negative for fracture The hospitalist service will continue to follow the patient Date of Service: Jul 08, 2024 Billing Provider: LEIGH DIEZ DO Common Visit Codes: [id number] INP/OBS CARE(LOW) LEIGH DIEZ DO Jul 08, 2024 18:19
[2024-07-08 19:00] VITALS: RESP 14; O2SAT 98
[2024-07-08 20:00] VITALS: BP 107/48; PULSE 75; RESP 14; TEMP 97.3; O2SAT 98
[2024-07-08 20:33] VITALS: PULSE 77; RESP 16; O2SAT 96
[2024-07-09 07:00] VITALS: RESP 14; O2SAT 98
[2024-07-09 08:00] VITALS: BP 101/52; PULSE 94; RESP 14; TEMP 97.3; O2SAT 98
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
[2024-07-09 19:00] VITALS: RESP 18; O2SAT 98
[2024-07-09 20:00] VITALS: BP 134/80; PULSE 98; RESP 18; TEMP 96.8; O2SAT 100
[2024-07-09 20:37] VITALS: PULSE 92; RESP 16; O2SAT 99
[2024-07-10 07:55] VITALS: BP 118/52; PULSE 89; RESP 18; TEMP 97.4; O2SAT 99
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
[2024-07-10 19:00] VITALS: RESP 18; O2SAT 97
[2024-07-10 20:00] VITALS: BP 91/46; PULSE 90; RESP 18; TEMP 96.9; O2SAT 97
[2024-07-11 07:36] VITALS: BP 108/58; PULSE 69; RESP 14; TEMP 97.4; O2SAT 98
[2024-07-11 10:38] VITALS: PULSE 80; RESP 18; O2SAT 100
[2024-07-11 10:44] VITALS: PULSE 82; RESP 18
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
[2024-07-11 19:00] VITALS: RESP 17; O2SAT 97
[2024-07-11 20:00] VITALS: BP 106/60; PULSE 87; RESP 17; TEMP 98.8; O2SAT 97
[2024-07-11] MEDS: divalproex sod 125mg sprinkle cap PO SCH (20:57)
[2024-07-12 07:33] VITALS: BP 115/70; PULSE 100; RESP 14; TEMP 97.7; O2SAT 99
[2024-07-12 07:41] VITALS: RESP 14; O2SAT 97
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
--- NOTE | 2024-07-12 17:04 | PROGRESS NOTE ---
Daily Progress Note Providers to CC ~ Antibiotic Timeout Antibiotic Ordered?: No Subjective States she wants to gain weight and wants shakes with meals, thinks she has fungus on her feet and wants to be checked for STD's Objective Vital Signs Date Time Temp Pulse Resp B/P (MAP) Pulse Ox O2 Delivery O2 Flow Rate FiO2 07/12/24 07:41 14 97 Room Air 07/12/24 07:33 97.7 100 115/70 (85) 07/11/24 10:44 0.0 07/11/24 10:38 21 Awake cooperative agitated hyperactive, in no acute distress HEENT normocephalic atraumatic extraocular movements noted Neck supple, no JVD Chest: Clear to auscultation, no wheezes crackles rhonchi Heart regular rate rhythm, no murmur or gallop rub Abdomen is soft nontender no organomegaly Extremities no cyanosis clubbing or edema Neuro exam is nonfocal Other Results Medications reviewed Problem\Assessment\Plan 1. Acute psychosis , polysubstance abuse, Suicidal ideation- continue treat per psych 2. Hypokalemia resolved 3. . UTI-resolved. Patient has completed one week course of Augmentin.She is asymptomatic 4. Other: I will order protein shakes, however it is difficult to assess how real her need to get checked for STD is given her maniac condition. Will defer to Psych. I will sign off. Please contact the hospitalist team for any change in patient's medical condition. Hospitalist team will continue follow the patient . Date of Service: Jul 12, 2024 Billing Provider: LUKE PARSON MD Common Visit Codes: [id number] INP/OBS CARE(LOW) LUKE PARSON MD Jul 12, 2024 17:04
[2024-07-12 17:35] VITALS: PULSE 85; RESP 18; O2SAT 99
[2024-07-12 17:40] VITALS: PULSE 84; RESP 20
[2024-07-12] MEDS: lactose-reduced food (Ensure High Protein) 237ml bottle PO SCH (17:44)
[2024-07-12 20:00] VITALS: BP 145/66; PULSE 87; RESP 16; TEMP 97.7; O2SAT 97
[2024-07-13 07:00] VITALS: RESP 16; O2SAT 98
[2024-07-13 08:00] VITALS: BP 112/68; PULSE 84; RESP 16; TEMP 84; O2SAT 98
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
[2024-07-13 19:00] VITALS: RESP 14; O2SAT 96
[2024-07-13 20:00] VITALS: BP 140/90; PULSE 95; RESP 16; TEMP 97.2; O2SAT 97
[2024-07-14 07:00] VITALS: RESP 20
[2024-07-14 08:00] VITALS: PULSE 90; RESP 20
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
--- NOTE | 2024-07-14 18:48 | PROGRESS NOTE- Residence ---
Progress Note - Resident Providers to CC Resident Creating Document: AILYN LOZADA RES ~ Antibiotic Timeout Antibiotic Ordered?: No Subjective Patient seen in the mental health unit, she is currently on-call talking on phone. No medical concerns or complaints at this time Objective Vital Signs Date Time Temp Pulse Resp B/P (MAP) Pulse Ox O2 Delivery O2 Flow Rate FiO2 07/14/24 08:00 90 20 07/14/24 07:00 Room Air 0.0 21 07/13/24 20:00 97.2 140/90 (107) 97 General: Awake and Alert, no acute distress. HEENT: Conjunctiva pink, Sclera clear, Mucus Membranes moist. Neck: Supple without masses and tenderness. Resp: Unlabored. Equal breath sounds bilaterally. Heart: Regular rhythm, normal S1 and S2, no rub, murmur or gallop. Abdomen: Soft and non tender no organomegaly. Normal bowel sounds x4 quadrant normoactive. No guarding or rigidity. Extremities: Normal ROM, no swelling, nontender. No cyanosis,clubbing or edema. PROP DRAWER: No gross motor or sensory abnormalities. Skin: Warm and Dry. Assessment Assessment Patient is a 29-year-old female with a chief complaint of suicidal ideation. Patient has pressured speech and unable to give any significant history can not tell me a plan keeps rambling on. Plan Plan Acute psychosis Polysubstance abuse Suicidal ideation Management per psychiatrist, hospitalist team will continue to follow. Date of Service: Jul 14, 2024 Billing Provider: ZE DIEHL MD Common Visit Codes: [id number] INP/OBS CARE(MOD) AILYN LOZADA RES Jul 14, 2024 18:48 ZE DIEHL MD Jul 15, 2024 06:15
[2024-07-14 19:00] VITALS: RESP 16; O2SAT 100
[2024-07-14 20:00] VITALS: BP_SYST 120; BP_SYST 166; BP_DIAS 70; PULSE 62; PULSE 95; RESP 16; RESP 18; TEMP 97.4; TEMP 97.8; O2SAT 100; O2SAT 97
[2024-07-15 07:20] VITALS: RESP 12; O2SAT 99
[2024-07-15 07:54] VITALS: PULSE 98; RESP 16; O2SAT 97
[2024-07-15 08:00] VITALS: BP 91/58; PULSE 85; RESP 12; TEMP 98.2; O2SAT 99
[2024-07-15 19:00] VITALS: RESP 18; O2SAT 99
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
[2024-07-15 20:00] VITALS: BP 113/58; PULSE 114; RESP 16; TEMP 97.1; O2SAT 99
[2024-07-16 07:00] VITALS: RESP 12; O2SAT 100
[2024-07-16 08:00] VITALS: BP 103/63; PULSE 96; RESP 12; TEMP 98.1; O2SAT 100
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
[2024-07-16 13:30] VITALS: RESP 16; O2SAT 100
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
[2024-07-16 19:00] VITALS: RESP 18; O2SAT 98
[2024-07-16 20:00] VITALS: BP 126/82; PULSE 98; RESP 18; TEMP 98.3
[2024-07-16 21:00] VITALS: PULSE 115; RESP 18; O2SAT 98
[2024-07-17 07:45] VITALS: BP 101/58; PULSE 100; RESP 16; TEMP 98.4; O2SAT 98
[2024-07-17 09:32] VITALS: PULSE 108; RESP 20; O2SAT 98
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
[2024-07-17 19:00] VITALS: RESP 18; O2SAT 99
[2024-07-17 20:00] VITALS: BP 129/75; PULSE 107; RESP 18; TEMP 98.2; O2SAT 99
[2024-07-17 21:06] VITALS: PULSE 107; RESP 16; O2SAT 98
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
[2024-07-18 07:30] VITALS: BP 107/68; PULSE 85; RESP 14; TEMP 97.9; O2SAT 100
[2024-07-18 08:19] VITALS: PULSE 84; RESP 16; O2SAT 96
[2024-07-18] MEDS: lisdexamfetamine dimesylate 10mg capsule PO SCH (10:55)
[2024-07-18 19:27] VITALS: BP 126/87; PULSE 93; RESP 18; TEMP 98; O2SAT 100
--- NOTE | 2024-07-18 20:33 | PROGRESS NOTE ---
Daily Progress Note Providers to CC ~ Antibiotic Timeout Antibiotic Ordered?: No Subjective This is the hospitalist progress note on patients hospitalized at [facility]. Patient requested a test for which the patient's RN informed me she already had a negative test the patient also was complaining of bilateral upper extremity numbness and discomfort while sleeping last evening states that she has not had this problem until last night currently she is has no complaints I informed her we will investigate this if her symptoms continues to reoccur Objective Vital Signs Date Time Temp Pulse Resp B/P (MAP) Pulse Ox O2 Delivery O2 Flow Rate FiO2 07/18/24 19:27 98.0 93 18 126/87 (100) 100 Room Air 07/18/24 08:19 0 21 Gen. No acute distress alert and oriented Lungs clear to ascultation bilaterally, no wheezes rales or rhonchi appreciated Heart normal sinus rhythm no murmurs rubs or clicks noted Abdomen soft nontender bowel sounds are normoactive Lower extremities no clubbing cyanosis, nor edema appreciated bilaterally Problem\Assessment\Plan 1. Acute psychosis , polysubstance abuse, Suicidal ideation- continue treat per psych (note the patient was the focus on an episode of intervention on A+E nine years ago for which at that time she already had had a psychotic breakdown from smoking methamphetamines) 2. Hypokalemia resolved 3. . UTI-resolved. Patient has completed one week course of Augmentin.She is asymptomatic 4. Somatic complaints including low-back pain and bilateral knee pain 07/18 upper extremity pain last evening x1 including numbness while sleeping Dylon-Cobos ointment PRN acetaminophen 625 mg t.i.d. Hospitalist service will continue to follow the patient while hospitalized at [facility] for behavioral health Date of Service: Jul 18, 2024 Billing Provider: LEIGH DIEZ DO Common Visit Codes: [id number] INP/OBS CARE(LOW) LEIGH DIEZ DO Jul 18, 2024 20:33
[2024-07-19 08:13] VITALS: PULSE 95; RESP 18
[2024-07-19 08:45] VITALS: PULSE 101; RESP 16; O2SAT 96
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
[2024-07-19 18:46] VITALS: RESP 18
[2024-07-19 19:10] VITALS: BP 137/75; PULSE 93; RESP 20; TEMP 98; O2SAT 96
[2024-07-19] MEDS: haloperidol lactate 5mg/ml inj ONE (21:01)
[2024-07-20 07:57] VITALS: BP 109/65; PULSE 72; RESP 14; TEMP 97.8; O2SAT 98
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
[2024-07-20 19:00] VITALS: RESP 18; O2SAT 98
[2024-07-20 20:00] VITALS: BP 122/68; PULSE 85; RESP 16; TEMP 97.4; O2SAT 100
--- NOTE | 2024-07-20 21:18 | PROGRESS NOTE ---
Daily Progress Note Providers to CC ~ Antibiotic Timeout Antibiotic Ordered?: No Subjective This is the hospitalist progress note on patients hospitalized at [facility]. The patient has was resting comfortably in bed she was complaining of ear pain and pointed anterior to her ear canal- and on palpation the patient was tender at the TMJ joint that is naproxen is ordered twice a day Objective Vital Signs Date Time Temp Pulse Resp B/P (MAP) Pulse Ox O2 Delivery O2 Flow Rate FiO2 07/20/24 07:57 97.8 72 14 109/65 (80) 98 Room Air 07/19/24 08:45 0 21 Gen. No acute distress alert and oriented HEENT: Point tenderness at the TMJ joint bilaterally Lungs clear to ascultation bilaterally, no wheezes rales or rhonchi appreciated Heart normal sinus rhythm no murmurs rubs or clicks noted Abdomen soft nontender bowel sounds are normoactive Lower extremities no clubbing cyanosis, nor edema appreciated bilaterally Problem\Assessment\Plan 1. Acute psychosis , polysubstance abuse, Suicidal ideation- continue treat per psych (note the patient was the focus on an episode of intervention on A+E nine years ago for which at that time she already had had a psychotic breakdown from smoking methamphetamines) 2. Hypokalemia resolved 3. . UTI-resolved. Patient has completed one week course of Augmentin.She is asymptomatic 4. Somatic complaints including low-back pain and bilateral knee pain 6/13 upper extremity pain last evening x1 including numbness while sleeping Dylon-Cobos ointment PRN acetaminophen 625 mg t.i.d. 5. TMJ Naproxen 500 mg b.i.d. with food The patient's RN was going to show the patient some TMJ stretches as well. Hospitalist service will continue to follow the patient while hospitalized at [facility] center for behavioral health Date of Service: Jul 20, 2024 Billing Provider: LEIGH DIZE DO Common Visit Codes: [id number] INP/OBS CARE(LOW) LEIGH DIEZ DO Jul 20, 2024 21:18
[2024-07-21 07:59] VITALS: BP 119/50; PULSE 83; RESP 16; TEMP 98.5; O2SAT 97
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
[2024-07-21] MEDS: NICOTINE POLACRILEX 2 MG LOZENGE BC PRN (17:36)
[2024-07-21 17:45] VITALS: RESP 16; O2SAT 97
[2024-07-21 19:00] VITALS: RESP 18; O2SAT 100
[2024-07-21 19:45] VITALS: PULSE 89; RESP 16; O2SAT 97
[2024-07-21 20:00] VITALS: BP 143/87; PULSE 100; RESP 18; TEMP 98.1; O2SAT 100
[2024-07-22 07:38] VITALS: BP 109/64; PULSE 90; RESP 16; TEMP 97.6; O2SAT 100
[2024-07-22 08:00] VITALS: RESP 16; O2SAT 100
[2024-07-22 08:35] VITALS: PULSE 101; RESP 16; O2SAT 99
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
--- NOTE | 2024-07-22 18:54 | PROGRESS NOTE ---
Daily Progress Note Providers to CC ~ no new complaint today, resting comfortably in the bed Central Line/PICC still needed: No Harris-Non Protocol Harris Indications Met/Not Met: F/C Indications Not Met Antibiotic Timeout Antibiotic Ordered?: No MRSA Education MRSA Education Provided to pt: No Subjective As above Objective Vital Signs Date Time Temp Pulse Resp B/P (MAP) Pulse Ox O2 Delivery O2 Flow Rate FiO2 07/22/24 08:35 101 16 99 Room Air* 0 21 07/22/24 07:38 97.6 109/64 (79) Vital signs, stable ,afebrile. Pulse Oximetry reflects adequate oxygenation. General: well developed, well nourished. Awake , alert, and oriented x4, resting comfortably in the bed, in no acute distress . Skin: Warm, dry, no pallor, no rash or petechiae. HEENT: Atraumatic, normocephalic, EOMI, anicteric sclera B; pink conjunctiva; PERRLA, normal oropharynx, moist oral and nasal mucosa. Tympanic membrane , nose , throat clear. Neck: Trachea midline. Supple, full range of motion, no JVD, bruit , hepatojugular reflex , lymphadenopathy or masses, or other lesions Cardiac: Regular rhythm, regular rate no murmurs, rubs, or gallops. Normal S1 and S2, no S3 noticed. PMI is normal. Respiratory: Equal breath sounds bilaterally, no tachypnea; lungs clear to auscultation bilaterally, no wheezing ,rub or rales, or crackles. Chest wall is symmetric and without deformity. No signs of trauma. Chest wall is nontender. No signs of respiratory distress. Resonance is normal upon percussion bilaterally. Gastrointestinal: Abdomen symmetric, non-distended, soft, non-tender, normal bowel sounds x4 quadrant, normoactive, no hepatosplenomegaly , no masses , no bruit, no flank pain bilaterally. No voluntary guarding, rebound, or rigidity. No tenderness to percussion. No pulsatile masses. Equal femoral pulses. No Bartholomew's sign or McBurney point tenderness. Back; no CVA tenderness bilaterally, no deformities. Neck and back are without deformity as well. No tenderness noted on palpation of the spinous processes. Spinous processes are midline. Cervical, thoracic, and lumbar paraspinal muscles are not tender and are without spasm. : normal external genitalia, without lesions, swelling, masses or tenderness. Musculoskeletal: Extremities, normal range of motion, non-tender, muscle strength 5/5 x 4. Negative Homans signs bilaterally on lower extremity. Distal pulses full symmetrical, no clubbing, cyanosis , edema. Neurological: Speech is clear, alert, and oriented x 4. No motor or sensory deficit, deep tendon reflexes normal, cerebellar intact. Cranial nerves II-XII intact. Psych: Alert and or appropriate, normal affect. Vascular: Good distal pulses, which are equal x4; capillary refill less than 2 seconds. Lymphatic, no lymphadenopathy. Problem\Assessment\Plan 1. Acute psychosis , polysubstance abuse, Suicidal ideation- continue treat per psych (note the patient was the focus on an episode of intervention on A+E nine years ago for which at that time she already had had a psychotic breakdown from smoking methamphetamines) 2. Hypokalemia resolved 3. . UTI-resolved. Patient has completed one week course of Augmentin.She is asymptomatic 4. Somatic complaints including low-back pain and bilateral knee pain 6/13 upper extremity pain last evening x1 including numbness while sleeping Dylon-Cobos ointment PRN acetaminophen 625 mg t.i.d. 5. TMJ Naproxen 500 mg b.i.d. with food The patient's RN was going to show the patient some TMJ stretches as well. Hospitalist service will continue to follow the patient while hospitalized at [facility] center for behavioral health Date of Service: Jul 22, 2024 Billing Provider: ROSALIE VÁSQUEZ MD Common Visit Codes: [id number] INP/OBS CARE(LOW) ROSALIE VÁSQUEZ MD Jul 22, 2024 18:54
[2024-07-22 19:00] VITALS: RESP 16; O2SAT 100
[2024-07-22 19:38] VITALS: PULSE 102; RESP 16; O2SAT 99
[2024-07-22 20:00] VITALS: BP 132/60; PULSE 96; RESP 20; TEMP 96.6; O2SAT 100
[2024-07-23 07:00] VITALS: RESP 17; O2SAT 100
[2024-07-23 08:00] VITALS: BP 114/63; PULSE 83; RESP 17; TEMP 97.9; O2SAT 100
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
[2024-07-23 19:00] VITALS: RESP 16; O2SAT 95
[2024-07-23 20:00] VITALS: BP 126/83; PULSE 89; RESP 16; TEMP 97.3; O2SAT 95
[2024-07-24 07:49] VITALS: RESP 16; O2SAT 99
[2024-07-24 08:18] VITALS: BP 112/67; PULSE 86; RESP 16; TEMP 97.6; O2SAT 99
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
[2024-07-24 19:00] VITALS: RESP 16; O2SAT 100
[2024-07-24 20:00] VITALS: BP 129/88; PULSE 87; RESP 16; TEMP 98.2; O2SAT 100
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
[2024-07-25 07:00] VITALS: RESP 12; O2SAT 98
[2024-07-25 08:00] VITALS: BP 104/69; PULSE 86; RESP 12; TEMP 98.1; O2SAT 98
[2024-07-25 19:00] VITALS: RESP 18; O2SAT 92
[2024-07-25 20:00] VITALS: BP 135/97; PULSE 89; RESP 18; TEMP 97.8; O2SAT 92
[2024-07-26] VITALS (7 sets, daily range): BP systolic 113–135; BP diastolic 75–109; PULSE 80–98; RESP 12–20; TEMP 97.4–97.9; O2SAT 97–99
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
--- NOTE | 2024-07-26 10:19 | PROGRESS NOTE ---
Daily Progress Note Providers to CC ~ doing well today, good appetite good sleep Central Line/PICC still needed: No Harris-Non Protocol Harris Indications Met/Not Met: F/C Indications Not Met Antibiotic Timeout Antibiotic Ordered?: No MRSA Education MRSA Education Provided to pt: No Subjective As above Objective Vital Signs Date Time Temp Pulse Resp B/P (MAP) Pulse Ox O2 Delivery O2 Flow Rate FiO2 07/26/24 08:00 97.4 80 12 113/75 (88) 99 Room Air 07/22/24 19:38 0 21 Vital signs, stable ,afebrile. Pulse Oximetry reflects adequate oxygenation. General: well developed, well nourished. Awake , alert, and oriented x4, resting comfortably in the bed, in no acute distress . Skin: Warm, dry, no pallor, no rash or petechiae. HEENT: Atraumatic, normocephalic, EOMI, anicteric sclera B; pink conjunctiva; PERRLA, normal oropharynx, moist oral and nasal mucosa. Tympanic membrane , nose , throat clear. Neck: Trachea midline. Supple, full range of motion, no JVD, bruit , hepatojugular reflex , lymphadenopathy or masses, or other lesions Cardiac: Regular rhythm, regular rate no murmurs, rubs, or gallops. Normal S1 and S2, no S3 noticed. PMI is normal. Respiratory: Equal breath sounds bilaterally, no tachypnea; lungs clear to auscultation bilaterally, no wheezing ,rub or rales, or crackles. Chest wall is symmetric and without deformity. No signs of trauma. Chest wall is nontender. No signs of respiratory distress. Resonance is normal upon percussion bilaterally. Gastrointestinal: Abdomen symmetric, non-distended, soft, non-tender, normal bowel sounds x4 quadrant, normoactive, no hepatosplenomegaly , no masses , no bruit, no flank pain bilaterally. No voluntary guarding, rebound, or rigidity. No tenderness to percussion. No pulsatile masses. Equal femoral pulses. No Bartholomew's sign or McBurney point tenderness. Back; no CVA tenderness bilaterally, no deformities. Neck and back are without deformity as well. No tenderness noted on palpation of the spinous processes. Spinous processes are midline. Cervical, thoracic, and lumbar paraspinal muscles are not tender and are without spasm. Musculoskeletal: Extremities, normal range of motion, non-tender, muscle strength 5/5 x 4. Negative Homans signs bilaterally on lower extremity. Distal pulses full symmetrical, no clubbing, cyanosis , edema. Neurological: Speech is clear, alert, and oriented x 4. No motor or sensory deficit, deep tendon reflexes normal, cerebellar intact. Cranial nerves II-XII intact. Psych: Alert and or appropriate, normal affect. Vascular: Good distal pulses, which are equal x4; capillary refill less than 2 seconds. Lymphatic, no lymphadenopathy. Problem\Assessment\Plan Assessment/plan 1. Acute psychosis , polysubstance abuse, Suicidal ideation- continue treat per psych (note the patient was the focus on an episode of intervention on A+E nine years ago for which at that time she already had had a psychotic breakdown from smoking methamphetamines) 2. Hypokalemia resolved 3. . UTI-resolved. Patient has completed one week course of Augmentin.She is asymptomatic 4. Somatic complaints including low-back pain and bilateral knee pain 6/13 upper extremity pain last evening x1 including numbness while sleeping Dylon-Cobos ointment PRN acetaminophen 625 mg t.i.d. 5. TMJ Naproxen 500 mg b.i.d. with food The patient's RN was going to show the patient some TMJ stretches as well. Hospitalist service will continue to follow the patient while hospitalized at [facility] center for behavioral health Sepsis Screening Reassessment Date: Jul 26, 2024 Date of Service: Jul 26, 2024 Billing Provider: ROSALIE VÁSQUEZ MD Common Visit Codes: [id number] INP/OBS CARE(LOW) ROSALIE VÁSQUEZ MD Jul 26, 2024 10:19
[2024-07-27 07:00] VITALS: RESP 16; O2SAT 99
[2024-07-27 08:00] VITALS: BP 104/69; PULSE 100; RESP 16; TEMP 98.3; O2SAT 99
[2024-07-27] MEDS: multivitamins, therapeutics tablet PO SCH (08:35)
[2024-07-27 16:53] VITALS: PULSE 80; RESP 20; O2SAT 100
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
[2024-07-27 19:00] VITALS: RESP 20; O2SAT 100
[2024-07-27 20:00] VITALS: BP 142/92; PULSE 67; RESP 20; TEMP 97.4; O2SAT 100
[2024-07-28 07:00] VITALS: RESP 16; O2SAT 99
[2024-07-28 08:07] VITALS: BP 122/74; PULSE 83; RESP 16; TEMP 98.2; O2SAT 99
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
[2024-07-28 19:00] VITALS: RESP 18; O2SAT 98
--- NOTE | 2024-07-28 19:02 | PROGRESS NOTE- Residence ---
Progress Note - Resident Providers to CC Resident Creating Document: KAY NUGENT, RES ~ Antibiotic Timeout Antibiotic Ordered?: No Subjective The patient was seen and examined at bedside today. She does not have any new complaints. She reported that she was on clonidine for hypertension in the past but she is not taking anymore. Her current blood pressures are mostly within normal range. Objective Vital Signs Date Time Temp Pulse Resp B/P (MAP) Pulse Ox O2 Delivery O2 Flow Rate FiO2 07/28/24 08:07 98.2 83 16 122/74 (90) 99 Room Air 07/27/24 16:53 0 21 Adult female, alert and oriented, euphoric Head: Normocephalic with an atraumatic Eyes: Pupils- 3mm, reacting to light, conjunctiva- anicteric Nose and throat: No polyps, septum- normal, no mucosal ulcers Neck: Supple, no lymphadenopathy, no carotid bruit Respiratory: No use of accessory muscles of respiration, Bilateral normal vesiscular breath sounds heard. No wheeze, rhochi or creps Cardiac: S1-S2 heard, rhythm regular, no gallop/murmur Abdomen: non distended, no tenderness, no organomegaly, bowel sounds - heard Extremities: no clubbing, no pedal edema, no deformities, peripheral pulses - 2+ Skin: warm and dry, no rash, no purpura Neuro: No focal deficit, gross cranial nerve exam - normal Assessment Assessment Patient is a 29-year-old female admitted into the mental health unit for suicidal ideation on 5150 hold. Plan Plan # Acute psychosis # polysubstance abuse # Suicidal ideation -management per Psychiatry team # hypertension Patient was on clonidine in the past. Her current blood pressures are mostly in the normal range. # UTI Finished a one-week course of Augmentin Repeat urinalysis clear. # hepatitis-C treatment The patient informs me she has completed a course of treatment. Disposition: Hospitalist team will continue to follow the patient during the course of her hospital stay. Kay Nugent MD Internal Medicine Resident, PGY-1 Date of Service: Jul 28, 2024 Billing Provider: LORA MOLINA MD, SOWMYA MANJARI, JENNIFER Jul 28, 2024 19:02
[2024-07-28 20:00] VITALS: BP 122/92; PULSE 67; RESP 18; TEMP 98.7; O2SAT 98
[2024-07-29 07:00] VITALS: RESP 12; O2SAT 99
[2024-07-29 08:04] VITALS: BP 111/52; PULSE 82; RESP 12; TEMP 97.5; O2SAT 99
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
[2024-07-29 15:59] VITALS: PULSE 82; RESP 22; O2SAT 98
[2024-07-29 20:00] VITALS: BP 127/86; PULSE 96; RESP 18; TEMP 98.8; O2SAT 98
[2024-07-30 07:00] VITALS: RESP 16; O2SAT 96
[2024-07-30 07:45] VITALS: BP 101/50; PULSE 96; RESP 16; TEMP 97; O2SAT 96
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
[2024-07-30 19:00] VITALS: RESP 14; O2SAT 99
--- NOTE | 2024-07-30 19:29 | PROGRESS NOTE- Residence ---
Progress Note - Resident Providers to CC Resident Creating Document: AILYN LOZADA RES ~ Antibiotic Timeout Antibiotic Ordered?: No Subjective The patient was seen and examined at bedside today. Complaining of stiffness in her neck, she is watching TV in the TV room. No other concerns or complaints. Objective Vital Signs Date Time Temp Pulse Resp B/P (MAP) Pulse Ox O2 Delivery O2 Flow Rate FiO2 07/30/24 07:45 97.0 96 16 101/50 (67) 96 Room Air 07/29/24 15:59 0 21 General: Awake and Alert, no acute distress. HEENT: Conjunctiva pink, Sclera clear, Mucus Membranes moist. Neck: Supple without masses and tenderness. Resp: Unlabored. Equal breath sounds bilaterally. Heart: Regular rhythm, normal S1 and S2, no rub, murmur or gallop. Abdomen: Soft and non tender no organomegaly. Normal bowel sounds x4 quadrant normoactive. No guarding or rigidity. Extremities: Normal ROM, no swelling, nontender. No cyanosis,clubbing or edema. LUMBER LOADER: No gross motor or sensory abnormalities. Skin: Warm and Dry. Assessment Assessment Patient is a 29-year-old female admitted into the mental health unit for suicidal ideation on 5150 hold. Plan Plan Acute psychosis Substance abuse Suicidal ideation Management per psychiatrist, hospitalist team will continue to follow. Date of Service: Jul 30, 2024 Billing Provider: ZE DIEHL MD Common Visit Codes: [id number] INP/OBS CARE(MOD) AILYN LOZADA RES Jul 30, 2024 19:29 ZE DIEHL MD Jul 30, 2024 21:28
[2024-07-30 20:00] VITALS: BP 114/72; PULSE 80; RESP 12; TEMP 97; O2SAT 99
[2024-07-30 21:18] VITALS: PULSE 96; RESP 18; O2SAT 97
[2024-07-31 07:30] VITALS: BP 111/61; PULSE 76; RESP 12; TEMP 98.4; O2SAT 98
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
[2024-07-31 19:00] VITALS: RESP 16; O2SAT 96
[2024-07-31 20:00] VITALS: BP 104/66; PULSE 64; PULSE 87; RESP 18; TEMP 98.9; O2SAT 97; O2SAT 99
[2024-08-01 07:30] VITALS: BP 113/72; PULSE 74; RESP 16; TEMP 97.9; O2SAT 97
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
--- NOTE | 2024-08-01 18:54 | PROGRESS NOTE- Residence ---
Progress Note - Resident Providers to CC Resident Creating Document: RAMON GEE CC: LORA MOLINA MD ~ Antibiotic Timeout Antibiotic Ordered?: No Subjective The patient was seen and examined at bedside today. She still complains of some neck pain which she states improved with one dose of baclofen a few days ago. She is requesting to get baclofen on a regular basis Objective Vital Signs Date Time Temp Pulse Resp B/P (MAP) Pulse Ox O2 Delivery O2 Flow Rate FiO2 08/01/24 07:30 Room Air 0.0 21 08/01/24 07:30 97.9 74 16 113/72 (86) 97 General: awake, alert oriented to place, time, and person HEENT: No pallor present, no icterus, moist mucous membranes Neck: No masses and tenderness Resp: Unlabored. Lungs clear to auscultation bilaterally. Chest: Normal expansion Cardiovascular: Regular Rate and rhythm, normal S1 and S2 without murmur, rub or gallop Abdomen: Soft and nontender, no organomegaly, no guarding and rigidity, bowel sounds present Neuro: No focal weakness in the upper and lower limb muscles, power of the muscles 5/5 bilateral upper and lower extremities, normal reflexes bilaterally. Cranial nerves intact Extremities: No cyanosis,clubbing or edema Skin: Warm and Dry. No lesions Psych: Cooperative with care Assessment Assessment Patient is a 29-year-old female admitted into the mental health unit for suicidal ideation on 5150 hold. Plan Plan Acute psychosis Substance abuse Suicidal ideation Management per psychiatrist, hospitalist team will continue to follow. Neck pain/muscle spasm Start baclofen 10 mg q.8h p.r.n. Ramon Ruiz MD Internal Medicine Resident PGY-1 Date of Service: Aug 01, 2024 Billing Provider: LORA MOLINA MD, LEONARDO LUIS Aug 01, 2024 18:54
[2024-08-01 19:00] VITALS: RESP 16; O2SAT 99
[2024-08-01 20:00] VITALS: BP 121/76; PULSE 77; RESP 16; TEMP 98; O2SAT 99
[2024-08-02 07:00] VITALS: RESP 16; O2SAT 99
[2024-08-02 08:00] VITALS: BP 120/73; PULSE 64; RESP 16; TEMP 98.7; O2SAT 99
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
[2024-08-02 19:00] VITALS: RESP 16; O2SAT 99
[2024-08-02 20:00] VITALS: BP 119/72; PULSE 73; RESP 16; TEMP 98.2; O2SAT 99
[2024-08-03 07:00] VITALS: BP 102/42; PULSE 67; RESP 14; TEMP 97.7; O2SAT 97
[2024-08-03 08:00] VITALS: RESP 14; O2SAT 97
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
--- NOTE | 2024-08-03 18:39 | PROGRESS NOTE ---
Daily Progress Note Providers to CC ~ Antibiotic Timeout Antibiotic Ordered?: No Subjective This is the hospitalist progress note on patients hospitalized at [facility]/ [facility] for behavioral health. The patient states her back pain is controlled with the baclofen there were no acute medical complaints or concerns voiced by the patient nor nursing staff Objective Vital Signs Date Time Temp Pulse Resp B/P (MAP) Pulse Ox O2 Delivery O2 Flow Rate FiO2 08/03/24 08:00 14 97 Room Air 08/03/24 07:00 97.7 67 102/42 (62) 08/01/24 07:30 0.0 21 Gen. No acute distress alert and oriented HEENT: Point tenderness at the TMJ joint bilaterally Lungs clear to ascultation bilaterally, no wheezes rales or rhonchi appreciated Heart normal sinus rhythm no murmurs rubs or clicks noted Abdomen soft nontender bowel sounds are normoactive Lower extremities no clubbing cyanosis, nor edema appreciated bilaterally Problem\Assessment\Plan Assessment/plan 1. Acute psychosis , polysubstance abuse, Suicidal ideation- continue treat per psych (note the patient was the focus on an episode of intervention on A+E nine years ago for which at that time she already had had a psychotic breakdown from smoking methamphetamines) 2. Hypokalemia resolved 3. . UTI-resolved. Patient has completed one week course of Augmentin.She is asymptomatic 4. Somatic complaints including low-back pain and bilateral knee pain 6/13 upper extremity pain last evening x1 including numbness while sleeping Dylon-Cobos ointment PRN acetaminophen 625 mg t.i.d. Continue baclofen 5. TMJ Naproxen 500 mg b.i.d. with food The patient's RN was going to show the patient some TMJ stretches as well. Hospitalist service will continue to follow the patient while hospitalized at [facility] center for behavioral health Date of Service: Aug 03, 2024 Billing Provider: LEIGH DIEZ DO Common Visit Codes: [id number] INP/OBS CARE(LOW) LEIGH DIEZ DO Aug 03, 2024 18:38
[2024-08-03 19:00] VITALS: RESP 16; O2SAT 99
[2024-08-03 19:49] VITALS: BP 125/84; PULSE 78; RESP 16; TEMP 98.9; O2SAT 99
[2024-08-04 07:30] VITALS: BP 111/63; PULSE 69; RESP 16; TEMP 97.6; O2SAT 99
[2024-08-04 08:00] VITALS: RESP 16; O2SAT 99
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
[2024-08-04] MEDS ORDERED: QUET300T20 PO (14:55)
[2024-08-04] MEDS ORDERED: OXCA300T52 PO (14:55)
[2024-08-04] MEDS ORDERED: LISD10CA PO (14:55)
[2024-08-04] MEDS ORDERED: HYDR-3686 PO (14:55)
[2024-08-04] MEDS ORDERED: LORA10TA7 PO (14:55)
[2024-08-04] MEDS ORDERED: FLUT16SP11 BOTHNARES (14:55)
[2024-08-04] MEDS ORDERED: MULT-25 PO (14:55)
[2024-08-04] MEDS ORDERED: BUPR100T13 PO (14:55)
[2024-08-04] MEDS ORDERED: ALBU18HF2 INH (14:55)
[2024-08-04] MEDS ORDERED: NAPR-56 PO (14:55)
[2024-08-04] MEDS ORDERED: BUPR1FIL3 SL (14:55)
[2024-08-04 15:11] VITALS: PULSE 101; RESP 18; O2SAT 96
[2024-08-04 19:00] VITALS: RESP 16; O2SAT 99
[2024-08-04 20:00] VITALS: BP 133/82; PULSE 96; RESP 16; TEMP 97.4; O2SAT 99
[2024-08-05 07:00] VITALS: RESP 16; O2SAT 97
[2024-08-05 08:00] VITALS: BP 97/58; PULSE 80; RESP 16; TEMP 97.9; O2SAT 97
--- NOTE | 2024-08-05 17:29 | PROGRESS NOTE ---
Daily Progress Note Providers to CC ~ Antibiotic Timeout Antibiotic Ordered?: No Subjective Patient was seen in mental health unit she was busy on phone talking with family or friends . Despite of nursing staff telling her to get off the phone she continued her talking but looks comfortable ambulating well Objective Vital Signs Date Time Temp Pulse Resp B/P (MAP) Pulse Ox O2 Delivery O2 Flow Rate FiO2 08/05/24 08:00 97.9 80 16 97/58 (71) 97 Room Air 08/04/24 15:11 0 21 General-patient not in any acute distress, alert awake , looks comfortable Neurology-awake able to communicate her needs and talking on phone Extremity- able to ambulate. Problem\Assessment\Plan Assessment/plan 1. Acute psychosis , polysubstance abuse, Suicidal ideation- continue treat per psych (note the patient was the focus on an episode of intervention on A+E nine years ago for which at that time she already had had a psychotic breakdown from smoking methamphetamines) 2. Hypokalemia resolved 3. . UTI-resolved. Patient has completed one week course of Augmentin.She is asymptomatic 4. Somatic complaints including low-back pain and bilateral knee pain 6/13 upper extremity pain last evening x1 including numbness while sleeping Dylon-Cobos ointment PRN acetaminophen 625 mg t.i.d. Continue baclofen 5. TMJ Naproxen 500 mg b.i.d. with food The patient's RN was going to show the patient some TMJ stretches as well. Hospitalist service will continue to follow the patient while hospitalized at [facility] center for behavioral health Date of Service: Aug 05, 2024 Billing Provider: SABINA MCCLELLAND MD Common Visit Codes: [id number] INP/OBS CARE(LOW) SABINA MCCLELLAND MD Aug 05, 2024 17:29
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
[2024-08-05 19:25] VITALS: BP 129/89; PULSE 80; RESP 18; TEMP 97.9; O2SAT 97
[2024-08-05 19:45] VITALS: PULSE 99; RESP 20; O2SAT 100
[2024-08-06 07:00] VITALS: RESP 16; O2SAT 96
[2024-08-06 08:00] VITALS: BP 116/65; PULSE 95; RESP 16; TEMP 97; O2SAT 96
[2024-08-06] MEDS ORDERED: tuberculin, purif. prot. deriv. 5 units/0.1ml ID ONE (11:00)
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
--- NOTE | 2024-08-06 13:27 | RADIOLOGY REPORT ---
CHEST RADIOGRAPH Indication: R/O TB Technique: Single frontal view of the chest was obtained Comparison: None FINDINGS: Lines and Tubes: None Lungs: No focal consolidation. Pleura: No effusion. No pneumothorax. Cardiomediastinal contours: Unremarkable Bones: No acute osseous abnormality. IMPRESSION: No acute cardiopulmonary disease. No evidence for active tuberculosis
[2024-08-06 19:48] VITALS: PULSE 66; RESP 18; O2SAT 97
[2024-08-06 20:52] VITALS: PULSE 110; RESP 19; TEMP 97.2; O2SAT 99
[2024-08-07 07:00] VITALS: RESP 16; O2SAT 100
[2024-08-07 08:00] VITALS: BP 112/75; PULSE 87; RESP 16; TEMP 98.2; O2SAT 100
--- NOTE | 2024-08-07 14:55 | DISCHARGE SUMMARY ---
Discharge Summary Providers to CC ~ Discharge Summary Admission Diagnosis: SCHIZOAFFECTIVE DISORDER, BIPOLAR TYPEMETHAMPHETAMINE SUICIDAL THOUGHTS Hospital Course DATE OF ADMISSION: DATE OF DISCHARGE: Discharge Diagnosis\\Comment: SCHIZOAFFECTIVE DISORDER, BIPOLAR TYPE METHAMPHETAMINE SUICIDAL THOUGHTS POLYSUBSTANCE ABUSE Operations\\Procedures: NONE Consultants: MEDICAL TEAM Complications: NONE Condition on DC: Stable 2 or more antipsychotic used: No 2/more antipsychotic addressed: No Does Patient smoke: Yes Smoking education given.: Yes New Medications: Hydroxyzine Hcl* (Atarax*) 25 Mg Tablet 50 MG PO Q6H PRN for anxiety for 30 Days, #120 TAB Lisdexamfetamine Dimesylate (Vyvanse) 10 Mg Capsule 20 MG PO QAM for 30 Days, #60 CAP Multivitamin with Folic Acid (Thera Tablet) 400 Mcg Tablet 1 EACH PO DAILY for 30 Days, #30 TAB Naproxen (Naproxen) 500 Mg Tablet 500 MG PO BID@0830,1730 for 30 Days, #60 TAB Oxcarbazepine (Oxtellar Xr) 300 Mg Tab.er.24h 600 MG PO DAILY for 30 Days, #150 TAB.SR OXCARBAZEPINE 900MG PO QHS OXCARBAZEPINE 600MG PO QAM Quetiapine Fumarate (Quetiapine Fumarate) 300 Mg Tablet 1 TAB PO HS for 30 Days, #30 TAB 0 Refills Continued Medications: Albuterol Sulfate (Ventolin Hfa) 90 Mcg Hfa.aer.ad 2 PUFFS INH Q4HPRN PRN for wheezing for 30 Days, #18 GM 0 Refills (This prescription has been renewed) Buprenorphine Hcl/Naloxone Hcl (Suboxone 8 Mg-2 Mg Sl Film) 8 Mg-2 Mg Film 1 STRIP SL DAILY for 30 Days, #30 STRIP (This prescription has been renewed) Bupropion Hcl (Wellbutrin) 100 Mg Tablet 1 TAB PO Q12H for 30 Days, #60 TAB 0 Refills (This prescription has been renewed) Fluticasone Propionate (Fluticasone Propionate) 16 [address] [place].susp 2 SPRAYS BOTHNARES DAILY, #1 INHALER 0 Refills (This prescription has been renewed) Loratadine (Loratadine) 10 Mg Tablet 10 MG PO DAILY for 30 Days, #30 TAB (This prescription has been renewed) Discontinued Medications: Lisdexamfetamine Dimesylate (Vyvanse) 10 Mg Capsule 1 CAP PO QAM for 30 Days, #30 CAP 0 Refills Quetiapine Fumarate* (Seroquel*) 100 Mg Tablet 5 TAB PO HS, TAB Discharge Summary: CHART REVIEW Pt is currently on a 5250 hold for GD. Pt was initially placed on a 5150 hold for GD after her mother called the crisis team out to check on the pt. Pt was yelling and speaking incoherently, unclothes and would not eat or drink. The pt has a long history of mental health issues and substance use issues. The pt has been in and out of mental health hospitals, jails and prisons over the last 10 plus years. Laquita reports that the pt was previously conserved in [facility] as well. Laquita is fearful that her daughter will end up if she continues down the path she is on and requests that this fiction and nonfiction prose writer refer the pt for LPS conservatorship. Patient actively seen and examined on day of discharge 08/07/2024, by myself, GOLDEN Kirkpatrick. The patient is interviewed in observation room. The patient endorses "Good." Denies SI. Denies HI. Denies AVH. Mary Carmen was able to formulate a safety plan which includes going to the emergency room if symptoms return or worsen. Call [phone] or [phone] for immediate assistance if necessary. During his hospital stay, Mary Carmen receive multidisciplinary treatment he adhered to his medication regimen and has been pleasant and cooperative. She denies any suicidal ideation (SI), homicidal ideation (HI), auditory/visual hallucination (HI). Staff has reported no behavioral issues, and the patient has been sleeping well, adequate food intake, with no mood or behavioral changes noted. The decision to discharge Mary Carmen was made in consensus with the treatment te am, including the medical social consultant, nuclear unit operator, and auditor in charge on duty. The patient was discharged a 30 day supply of medication. MENTAL STATUS EXAM APPEARANCE: APPROPRIATELY. DRESSED IN STREET CLOTHING. SPEECH: CIRCUMSTANCE EYE CONTACT: NORMAL AFFECT: CONGRUENT WITH MOOD MOOD: "GOOD" ORIENTATION IMPAIRMENT: NONE MEMORY IMPAIRMENT: NONE ATTENTION: NORMAL HALLUCINATIONS: NONE SUICIDALITY: NONE HOMICIDALITY: NONE DELUSIONS: NONE BEHAVIOR: COOPERATIVE, PLEASANT JUDGMENT: FAIR INSIGHT: FAIR Continue Current Inpatient Psychotropic Regimen @ home Follow-Up with Psychiatric Provider Safety Plan Discussed DISCHARGE CONDITION: Her readiness for discharge is supported by his stable mental status, adherence to treatment, and proactive approach to managing his mental health. Denies SI. Denies HI. Denies A/V/H. The patient has been informed to continue follow-up care to ensure ongoing support and monitoring. Patient discharged to [facility]. *Problems/Diagnosis: (1) Schizoaffective disorder, bipolar type (2) Methamphetamine abuse Status: Acute (3) Polysubstance abuse Status: Acute (4) Suicidal thoughts Status: Acute Total Time Spent on D/C: > 30 Minutes Counseling Services Smoking & Tobacco Cessation: > 10 Minutes CODING VISIT-PSYCHIATRY Date of Service: Aug 07, 2024 Billing Provider: BC CEDENO APRN Psych Common Visit Codes: [id number]/OBS DISCH DAY >30min BC CEDENO APRN Aug 07, 2024 14:55
== END 2024-08-07 09:25 | disposition home or self-care (01) | DRG 885 ==
LOC: ER 14:37 → ED HOLD 06-25 08:34 → UNDOADMIN 06-25 08:34 → ED HOLD 06-25 13:13 → ADULT MH 06-25 13:14 → ED HOLD 06-25 13:14 → ADULT MH 07-12 07:05
PROVIDERS: ADMIT Psychiatry & Neurology Psychiatry; ATTEND Psychiatry & Neurology Psychiatry
PROC: GZHZZZZ Group Psychotherapy (ICD-10-PCS; principal; 2024-06-26)
PROC: GZ51ZZZ Individual Psychotherapy, Behavioral (ICD-10-PCS; 2024-06-26)
DX: F25.0 Schizoaffective disorder, bipolar type (principal); F23 Brief psychotic disorder; R45.851 Suicidal ideations; Z59.00 Homelessness unspecified; N39.0 Urinary tract infection, site not specified; Z20.822 Contact with and (suspected) exposure to COVID-19; M54.59 Other low back pain; E87.6 Hypokalemia; M25.561 Pain in right knee; M25.562 Pain in left knee; F19.10 Other psychoactive substance abuse, uncomplicated; Z88.8 Allergy status to other drugs, medicaments and biological substances; Z79.899 Other long term (current) drug therapy
CPT/HCPCS: 36415; 71045; 73630; 80048; 80053; 80061; 80305; 80320; 80329; 81001; 81003; 81025; 83036; 83735; 84443; 85025; 86592; 87081; 87811; 94640; 94760; 96372; 99285; A6250; A6402; A6449; J1200; J1630; J2060; J3490; Q0161; Q0163; Q0177

== ENCOUNTER 2024-08-13 20:17 | Emergency (ER) | payer MEDICARE, MEDICAID ==
[~2024-08-13] VITALS: Ht 175.3 cm; Wt 61.5 kg
[~2024-08-13 20:17] MED LIST changes: +BUPR100T13 PO; +BUPR1FIL3 SL; -BUPR1TAB44 SL; -BUSP5TAB26 PO; -FLUT16SP NS; +FLUT16SP11 BOTHNARES; -IBUP-1986 PO; -LORA10TA65 PO; +LORA10TA7 PO; +MULT-25 PO; +NAPR-56 PO; +OXCA300T52 PO; -QUET100T34 PO; +QUET300T20 PO; -TERB125S TOP
[2024-08-13 20:22] VITALS: BP 145/78; PULSE 102; RESP 22; TEMP 97.6; O2SAT 98
--- NOTE | 2024-08-13 23:00 | Physician Documentation ---
History of Present Illness ~ Chief Complaint: Ingestion Error Stated Complaint: "NEED TO SEE A DR" Time Seen by MD: 21:41 Primary Medical Doctor: COURTNEY SORENSON Patient is seen today with complaints of skin lesions and is unknown meth user. Patient denies any chest pain or shortness of breath or abdominal pain or nausea, vomiting, diarrhea. Patient denies picking on her skin and she denies any fever or chills. She has no other concern or complaint at this time. Patient denies any methamphetamine use. Medication Reconciliation Allergies: Coded Allergies: asenapine (Verified Allergy, Intermediate, LEG TWITCHING, 08/13/24) paliperidone (Verified Allergy, Intermediate, ALTERED LOC, 08/13/24) Scheduled Buprenorphine Hcl/Naloxone Hcl (Suboxone 8 Mg-2 Mg Sl Film), 1 STRIP SL DAILY Bupropion Hcl (Wellbutrin), 1 TAB PO Q12H Fluticasone Propionate (Fluticasone Propionate), 2 SPRAYS BOTHNARES DAILY Lisdexamfetamine Dimesylate (Vyvanse), 20 MG PO QAM Loratadine (Loratadine), 10 MG PO DAILY Multivitamin with Folic Acid (Thera Tablet), 1 EACH PO DAILY Naproxen (Naproxen), 500 MG PO BID@0830,1730 Oxcarbazepine (Oxtellar Xr), 600 MG PO DAILY Quetiapine Fumarate (Quetiapine Fumarate), 1 TAB PO HS Scheduled PRN Albuterol Sulfate (Ventolin Hfa), 2 PUFFS INH Q4HPRN PRN for wheezing Hydroxyzine Hcl* (Atarax*), 50 MG PO Q6H PRN for anxiety Past Medical History 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*, Hepatitis C, [place], Bipolar Past Surgical History: no surgical history Alcohol Use: None Drug Use: marijuana, methamphetamine, heroin Lives In: Homeless Review of Systems Constitutional: Denies: chills, fever, weakness Eyes: Denies: pain, blurred vision ENT: Denies: ear pain, nose pain, throat pain, mouth pain Respiratory: Denies: cough, shortness of breath Cardiovascular: Denies: chest pain, palpitations Gastrointestinal: Denies: abdominal pain, nausea, vomiting Genitourinary: Denies: burning, dysuria Female Genitalia: Denies: vaginal discharge, pelvic pain Neurological: Denies: headache, dizziness Musculoskeletal: Denies: pain, swelling Integumentary: Denies: rash, lesions Allergic/Immunologic: Denies: hives, itching Hematologic/Lymphatic: Denies: no symptoms reported Psychiatric: Denies: depression, anxiety Physical Exam Vital Signs: Temperature: 97.6, Source: Temporal, Heart Rate: 102, Respiratory Rate: 22, BP: 145/78, Pulse Oximetry: 98, Weight: 61.550 Physical Exam General: Awake and Alert, no acute distress. HEENT: Conjunctiva pink, Sclera clear, Mucus Membranes moist. Neck: Supple without masses and tenderness. Resp: Unlabored. Lungs clear to auscultation bilaterally. Heart: Regular Rate and rhythm, normal S1 and S2 without murmur, rub or gallop. Abdomen: Soft and non tender no organomegaly Extremities: No cyanosis,clubbing or edema. Skin: Patient on exam does have chicken picker's nodules and scabs consistent with picking and methamphetamine use. Patient has no sign of cellulitis or active infection. Progress Results/Orders Results/Orders Vital Signs 08/13/24 20:22 Temp 97.6 Pulse 102 Resp 22 B/P (MAP) 145/78 Pulse Ox 98 Medical Decision Making Findings Patient is seen today with complaints of skin lesions and is unknown meth user. Patient denies any chest pain or shortness of breath or abdominal pain or nausea, vomiting, diarrhea. Patient denies picking on her skin and she denies any fever or chills. She has no other concern or complaint at this time. Bebeto ordaz denies any methamphetamine use. Patient will follow up with primary care in 2-5 days if no better as needed sooner. Return to ED with any worsening, concerning or changing symptoms. Patient is medically cleared to enter drug rehab at [facility]. Patient left prior to the delivery of any of this information. Patient will return to ED with any worsening, concerning or changing symptoms. Departure Disposition: 07 LEFT AWOL/ELOPED Impression: Primary Impression: Methamphetamine abuse Additional Impression: Lighter's nodules Condition: Stable Discharge Instructions: Amphetamines Use Disorder Additional Instructions: Patient will follow up with primary care in 2-5 days if no better as needed sooner. Return to ED with any worsening, concerning or changing symptoms. Patient is medically cleared to enter drug rehab at [facility]. Patient left prior to the delivery of any of this information. Patient will return to ED with any worsening, concerning or changing symptoms. Referrals: NO PRIMARY CARE PROVIDER (PCP) Signature Scribe Signature: No scribe Attestation: No scribe LOGAN BALDWIN PAC Aug 13, 2024 23:00
== END 2024-08-13 21:53 | disposition left against medical advice (07) ==
LOC: ER 20:18
DX: F15.10 Other stimulant abuse, uncomplicated (principal); Z88.8 Allergy status to other drugs, medicaments and biological substances
CPT/HCPCS: 99282